=== PATIENT | female | born 1985 | race African-American/Black ===

== ENCOUNTER 2016-06-29 06:17 | Emergency (ER) | payer SELFPAY ==
[2016-06-29] MEDS ORDERED: PROMETHAZINE HCL 25 MG TABLET PO ONE (08:11)
[2016-06-29] MEDS ORDERED: BUTALB/ACETAMINOPHEN/CAFFEINE 1 TAB EACH PO ONE (08:11)
--- NOTE | 2016-06-29 08:12 | ER Document Report ---
HPI - HPI Patient complains to provider of: cold symptoms Onset: Yesterday Onset/Duration: Gradual Quality of pain: Achy Pain Level: 5 Context: Patient presents complaining of sore throat, congestion and nonproductive cough that started yesterday. Patient states she had headache with nausea and vomiting. Patient does report multiple sick contacts at work recently. Patient does report some light sensitivity. Patient denies any fever. Associated Symptoms: Body/muscle aches, Nonproductive cough, Headache, Nausea, Vomiting, Rhinnorhea, Sore throat. denies: Chest pain, Earache, Fever Exacerbated by: Denies Relieved by: Denies Similar symptoms previously: Yes Recently seen / treated by doctor: No - ROS ROS below otherwise negative: Yes Systems Reviewed and Negative: Yes All other systems reviewed and negative - CONSTITUTIONAL Constitutional: REPORTS: Chills. DENIES: Fever - EENT EENT: REPORTS: Sore Throat, Nasal Drainage-Clear, Congestion - NEURO Neurology: REPORTS: Headache - CARDIOVASCULAR Cardiovascular: DENIES: Chest pain - RESPIRATORY Respiratory: REPORTS: Coughing. DENIES: Trouble Breathing - GASTROINTESTINAL Gastrointestinal: REPORTS: Nausea, Patient vomiting. DENIES: Abdominal Pain, Diarrhea - REPRODUCTIVE Reproductive: DENIES: : - MUSCULOSKELETAL Musculoskeletal: REPORTS: Extremity pain - Generalized body aches. DENIES: Back Pain, Neck Pain - DERM Skin Color: Normal Skin Problems: None Past Medical History - General Information source: Patient Last Menstrual Period: 06/22/2016 - Social History Smoking Status: Never Smoker Frequency of alcohol use: Occasional Drug Abuse: None Occupation: food production supervisor Lives with: Family Family History: None Pulmonary Medical History: Reports: Hx Asthma Neurological Medical History: Reports: Hx Migraine Surgical Hx: Negative - Immunizations Immunizations up to date: Yes Hx Diphtheria, Pertussis, Tetanus Vaccination: Yes Hx Pneumococcal Vaccination: 09/06/11 Vertical Provider Document - CONSTITUTIONAL Agree With Documented VS: Yes Exam Limitations: No Limitations General Appearance: WD/WN, No Apparent Distress - INFECTION CONTROL TRAVEL OUTSIDE OF THE [place] IN LAST 30 DAYS: No - HEENT HEENT: Atraumatic, Normocephalic, Pharyngeal Tenderness, Pharyngeal Erythema. negative: Pharyngeal Exudate - NECK Neck: Lymphadenopathy-Left, Lymphadenopathy-Right - RESPIRATORY Respiratory: Breath Sounds Normal, No Respiratory Distress, Chest Non-Tender. negative: Rales, Rhonchi, Wheezing O2 Sat by Pulse Oximetry: 98 - CARDIOVASCULAR Cardiovascular: Regular Rate, Regular Rhythm, No Murmur - GI/ABDOMEN Gastrointestinal: Abdomen Soft, Abdomen Non-Tender, No Organomegaly - BACK Back: Normal Inspection. negative: CVA Tenderness-Right, CVA Tenderness-Left - MUSCULOSKELETAL/EXTREMETIES Musculoskeletal/Extremeties: MAEW, FROM - NEURO Level of Consciousness: Awake, Alert, Appropriate - DERM Integumentary: Warm, Dry, No Rash Course - Re-evaluation Re-evalutation: 06/29/16 09:22 Patient reports feeling better. Patient states headache pain has improved as well as nausea. Patient has been tolerating oral fluids without emesis. Discussed worsening signs or symptoms that patient should return immediately for. Patient verbalized understanding and agrees with plan of care. - Vital Signs Vital signs: Temp Pulse Resp BP Pulse Ox 98.5 F 96 16 115/56 L 98 06/29/16 06:22 06/29/16 06:22 06/29/16 06:22 06/29/16 06:22 06/29/16 06:22 - Laboratory Laboratory results interpreted by me: 06/29/16 09:22 Labs- Entire Visit 06/29/16 06/29/16 08:20 08:20 Influenza A (Rapid) NEGATIVE Influenza B (Rapid) NEGATIVE Group A Strep Rapid NEGATIVE 06/29/16 14:10 Discharge - Discharge Clinical Impression: Sore throat Upper respiratory infection Qualifiers: URI type: unspecified URI Qualified Code(s): J06.9 - Acute upper respiratory infection, unspecified Headache Qualifiers: Headache type: unspecified Headache chronicity pattern: unspecified pattern Intractability: not intractable Qualified Code(s): R51 - Headache Condition: Stable Disposition: HOME, SELF-CARE Instructions: Upper Respiratory Illness ([facility]), Sore Throat ([facility]), Acetaminophen , Headache ([facility]), Nausea or Vomiting, Nonspecific ([facility]) Additional Instructions: Return immediately for any new or worsening symptoms Followup with your primary care provider, call tomorrow to make a followup appointment Prescriptions: Butalb/Acetaminophen/Caffeine [Fioricet (50-325-40 mg) Tablet] 1 - 2 tab PO Q4H #12 each Promethazine HCl [Phenergan 25 mg Tablet] 25 mg PO Q6H PRN #10 tablet PRN Reason: Forms: Return to Work Referrals: [facility] [Provider Group] - Follow up as needed [facility] [Provider Group] - Follow up tomorrow
[2016-06-29 09:31] VITALS: BP 108/56
== END 2016-06-29 09:31 | disposition home or self-care (01) ==
LOC: ER 06:17
DX: J06.9 Acute upper respiratory infection, unspecified (principal); J02.9 Acute pharyngitis, unspecified; R51 Headache; R11.2 Nausea with vomiting, unspecified; M79.1 Myalgia
CPT/HCPCS: 99283; 87070; 87880; 87804; J3490

== ENCOUNTER 2016-08-08 23:34 | Emergency (ER) | payer SELFPAY ==
[2016-08-09] MEDS ORDERED: IPRATROPIUM/ALBUTEROL 0.5-2.5 MG/3 ML AMPUL NEB ONE (03:07)
--- NOTE | 2016-08-09 03:21 | ER Document Report ---
ED Respiratory Problem - General Chief Complaint: Cough Stated Complaint: BREATHING DIFFICULTY Time seen by provider: 03:19 Mode of Arrival: Ambulatory Information source: Patient TRAVEL OUTSIDE OF THE [place] IN LAST 30 DAYS: No - HPI Patient complains to provider of: Cough, Short of breath Onset: Other - Months Duration: Worse/persistent Quality of pain: Achy Severity: Mild Short of Breath: Mild Chest pain/discomfort: Tightness Cough: Nonproductive Associated symptoms: Chest pain/discomfort, Congestion, Cough, Short of breath Notes: Patient is a 31-year-old female who presents to the emergency room complaining of chest tightness with shortness of breath and nonproductive cough, symptoms have been going on for the past few months, but worsened over the past few, she reports that she stopped smoking marijuana approximately 2 weeks ago when her cough worsened, she denies any fevers, no injuries, she does not smoke cigarettes - Related Data Allergies/Adverse Reactions: No Known Allergies Allergy (Verified 12/29/15 21:26) Past Medical History - General Information source: Patient - Social History Smoking Status: Unknown if Ever Smoked Drug Abuse: Marijuana Family History: None Patient has suicidal ideation: No Patient has homicidal ideation: No Pulmonary Medical History: Reports: Hx Asthma Neurological Medical History: Reports: Hx Migraine Renal/ Medical History: Denies: Hx Peritoneal Dialysis - Immunizations Immunizations up to date: Yes Hx Diphtheria, Pertussis, Tetanus Vaccination: Yes Hx Pneumococcal Vaccination: 09/06/11 Review of Systems - Review of Systems Constitutional: No symptoms reported EENT: No symptoms reported Cardiovascular: See HPI Respiratory: See HPI Gastrointestinal: No symptoms reported Genitourinary: No symptoms reported Female Genitourinary: No symptoms reported Musculoskeletal: No symptoms reported Skin: No symptoms reported Hematologic/Lymphatic: No symptoms reported Neurological/Psychological: No symptoms reported -: Yes All other systems reviewed and negative Physical Exam - Vital signs Vitals: Temp Pulse Resp BP Pulse Ox 97.5 F 81 20 140/97 H 100 08/08/16 23:41 08/08/16 23:41 08/08/16 23:41 08/08/16 23:41 08/08/16 23:41 Interpretation: Normal - General General appearance: Appears well, Alert - HEENT Head: Normocephalic, Atraumatic Eyes: Normal Pupils: PERRL - Respiratory Respiratory status: No respiratory distress Chest status: Nontender Breath sounds: Nonproductive cough, Wheezing Chest palpation: Normal - Cardiovascular Rhythm: Regular Heart sounds: Normal auscultation Murmur: No - Abdominal Inspection: Normal Distension: No distension Bowel sounds: Normal Tenderness: Nontender Organomegaly: No organomegaly - Back Back: Normal, Nontender - Extremities General upper extremity: Normal inspection, Nontender, Normal color, Normal ROM , Normal temperature General lower extremity: Normal inspection, Nontender, Normal color, Normal ROM , Normal temperature, Normal weight bearing. No: Janell's sign - Neurological Neuro grossly intact: Yes Cognition: Normal Orientation: AAOx4 Arik Coma Scale Eye Opening: Spontaneous Arik Coma Scale Verbal: Oriented Arik Coma Scale Motor: Obeys Commands Arik Coma Scale Total: 15 Speech: Normal Motor strength normal: LUE, RUE, LLE, RLE Sensory: Normal - Psychological Associated symptoms: Normal affect, Normal mood - Skin Skin Temperature: Warm Skin Moisture: Dry Skin Color: Normal Course - Re-evaluation Re-evalutation: 08/09/16 04:00 Patient reports feeling much better after DuoNeb breathing treatment, imaging shows no evidence of abnormality, this finding was discussed with patient, she was advised to discontinue smoking marijuana, she will be provided with an albuterol inhaler as well as a prescription for steroids, advised to follow-up with her primary care provider or return if symptoms worsen, patient acknowledges understanding and agreement with this plan - Vital Signs Vital signs: Temp Pulse Resp BP Pulse Ox 97.5 F 77 16 117/72 98 08/09/16 02:55 08/09/16 02:55 08/09/16 02:55 08/09/16 02:55 08/09/16 02:55 - Diagnostic Test Radiology reviewed: Image reviewed, Reports reviewed - EKG Interpretation by Md EKG shows normal: Sinus rhythm Rate: Normal Rhythm: NSR Discharge - Discharge Clinical Impression: Viral upper respiratory illness Reactive airway disease Qualifiers: Asthma severity: mild persistent Asthma complication type: uncomplicated Qualified Code(s): J45.30 - Mild persistent asthma, uncomplicated Condition: Stable Disposition: HOME, SELF-CARE Instructions: Upper Respiratory Illness ([facility]), Reactive Airway Disease ([facility]) Additional Instructions: Follow up with your primary care provider in one to 2 days. Return to the emergency room immediately if symptoms worsen or any additional concerns. Prescriptions: Prednisone 40 mg PO DAILY #8 tablet Forms: Return to Work
[2016-08-09] MEDS ORDERED: IBUPROFEN 600 MG TABLET PO ONE (03:33)
[2016-08-09] MEDS ORDERED: PREDNISONE 20 MG TABLET PO ONE (04:00)
[2016-08-09 04:15] VITALS: BP 113/69
[2016-08-09] MEDS ORDERED: ALBUTEROL SULFATE HFA (90 MCG/PUFF) 8 GM MDI (1 MDI/ER DISP) IH SCH (06:00)
--- NOTE | 2016-08-09 07:49 | EKG REPORT ---
SEVERITY:- NORMAL ECG - SINUS RHYTHM : Confirmed by: Gonzalo Ken 09-Aug-2016 07:48:19
== END 2016-08-09 04:16 | disposition home or self-care (01) ==
LOC: ER 23:34
DX: J06.9 Acute upper respiratory infection, unspecified (principal); J45.30 Mild persistent asthma, uncomplicated; R07.9 Chest pain, unspecified; R05 Cough; R06.02 Shortness of breath
CPT/HCPCS: 93005; 94640; 99283; 71020; 93010; J7512; J3490; J7620

== ENCOUNTER 2016-08-19 23:03 | Emergency (ER) | payer SELFPAY ==
[2016-08-20] MEDS ORDERED: ONDANSETRON 4 MG TAB.RAPDIS PO ONE (00:36)
[2016-08-20] MEDS ORDERED: IBUPROFEN 600 MG TABLET PO ONE (00:36)
--- NOTE | 2016-08-20 00:40 | ER Document Report ---
ED General - General Chief Complaint: Headache Stated Complaint: HEADACHE,BLURRED VISION Notes: This is a 31-year-old female with a prior history of asthma who presents for evaluation of feeling dehydrated. She states that she drank "a lot" of alcohol yesterday. Today she presents with headache and blurred vision. No vomiting. In fact she has deep well today and states that she has had [place] food and seafood with no difficulty. Normal bowel movement earlier today. She denies any dysuria or urinary frequency. She has a history of migraines and she states that normally she will take ibuprofen for her headaches but she ran out and did not have any to take tonight. She denies any fevers or chills. TRAVEL OUTSIDE OF THE [place] IN LAST 30 DAYS: No - Related Data Allergies/Adverse Reactions: No Known Allergies Allergy (Verified 08/19/16 23:09) Past Medical History - General Information source: Patient - Social History Smoking Status: Never Smoker Frequency of alcohol use: Occasional Drug Abuse: Marijuana Lives with: Family Family History: None, Reviewed & Not Pertinent Pulmonary Medical History: Reports: Hx Asthma Neurological Medical History: Reports: Hx Migraine Renal/ Medical History: Denies: Hx Peritoneal Dialysis - Immunizations Immunizations up to date: Yes Hx Diphtheria, Pertussis, Tetanus Vaccination: Yes Hx Pneumococcal Vaccination: 09/06/11 Review of Systems - Review of Systems Notes: REVIEW OF SYSTEMS: CONSTITUTIONAL : Denies fever, chills, or sweats. Denies recent illness. EENT: Denies eye, ear, throat, or mouth pain or symptoms. Denies nasal or sinus congestion. CARDIOVASCULAR: Denies chest pain. RESPIRATORY: Denies cough, cold, or chest congestion. Denies shortness of breath, difficulty breathing, or wheezing. GASTROINTESTINAL: Denies abdominal pain. Denies nausea, vomiting, or diarrhea. GENITOURINARY: Denies difficulty urinating, painful urination, burning, frequency, or blood in urine. MUSCULOSKELETAL: Denies neck or back pain or joint pain or swelling. SKIN: Denies rash or skin lesions. HEMATOLOGIC : Denies easy bruising or bleeding. LYMPHATIC: Denies swollen, enlarged glands. NEUROLOGICAL: Denies altered mental status or loss of consciousness. Headache as per history of present illness PSYCHIATRIC: Denies anxiety or stress or depression. ALL OTHER SYSTEMS REVIEWED AND NEGATIVE. Physical Exam - Vital signs Vitals: Temp Pulse Resp BP Pulse Ox 98.0 F 102 H 17 134/82 H 99 08/19/16 23:09 08/19/16 23:09 08/19/16 23:09 08/19/16 23:09 08/19/16 23:09 - Notes Notes: PHYSICAL EXAMINATION: GENERAL: Well-appearing, well-nourished and in no acute distress. Pleasant and conversant HEAD: Atraumatic, normocephalic. EYES: Pupils equal round and reactive to light, extraocular movements intact, sclera anicteric, conjunctiva are normal. ENT: nares patent, oropharynx clear without exudates. Moist mucous membranes. NECK: Normal range of motion, supple without lymphadenopathy LUNGS: Breath sounds clear to auscultation bilaterally and equal. No wheezes rales or rhonchi. HEART: Regular rate and rhythm without murmurs ABDOMEN: Soft, nontender, normoactive bowel sounds. No guarding, no rebound. No masses appreciated. EXTREMITIES: Normal range of motion NEUROLOGICAL: Cranial nerves grossly intact. Normal speech. Motor strength +5/ 5 bilateral upper and lower extremities. Sensation intact. PSYCH: Normal mood, normal affect. SKIN: Warm, Dry, normal turgor, no rashes or lesions noted. Course - Re-evaluation Re-evalutation: 08/20/16 01:52 Patient has remained hemodynamically stable in the emergency department. She is feeling somewhat better after the ibuprofen. She is able to tolerate fluids without difficulty. Her labs are reviewed. She does have a mild leukocytosis. Her chemistries are reassuring. Her urinalysis is within normal limits. At this point she is neurologically intact with a very reassuring exam. I do not suspect meningitis or TUBE BENDER HAND infection. She will be discharged with NSAIDs and nausea medications and instructed to follow up with her primary care physician. We did discuss strict return precautions and she and her family are comfortable with this plan. - Vital Signs Vital signs: Temp Pulse Resp BP Pulse Ox 98.3 F 96 16 122/66 99 08/20/16 02:24 08/20/16 02:24 08/20/16 02:24 08/20/16 02:24 08/20/16 02:24 - Laboratory Result Diagrams: 08/20/16 01:10 08/20/16 01:10 Laboratory results interpreted by me: 08/20/16 01:10 WBC 13.6 H RDW 15.2 H Seg Neutrophils % 78.5 H Lymphocytes % 11.1 L Absolute Neutrophils 10.7 H Discharge - Discharge Clinical Impression: Nausea Headache Qualifiers: Headache type: tension-type Headache chronicity pattern: unspecified pattern Intractability: not intractable Qualified Code(s): G44.209 - Tension-type headache, unspecified, not intractable Condition: Stable Disposition: HOME, SELF-CARE Additional Instructions: HEADACHE: The physician does not feel that the headache you are experiencing has a serious underlying cause. Most headaches are due to emotional stress, with resultant muscle tension (tension headache). Occasionally, headaches are secondary to changes in the blood vessels of the scalp (vascular headache and migraine headache). Sometimes, a headache is the first symptom of another developing illness, such as a viral infection. You have no evidence of stroke, bleeding, meningitis, or other serious cause of your headache. The treatment of headaches varies with the severity and cause of the pain. Not all headaches need pain shots. In fact, there is evidence that using narcotics for headaches may make them worse in the long run. The physician will determine the therapy that's in your best interest. If you develop a fever, if the headache is different from any you've previously experienced, or if the headache progressively worsens, then call your physician at once or go to the emergency room. USE OF DIPHENHYDRAMINE: Diphenhydramine (Benadryl) is an antihistamine and has been recommended to help treat your headache and to prevent side effects of other medications used to treat headaches. The medication can be repeated four times daily. Age Elixir (12.5 mg/tsp) 25 mg pill adult 1-2 tabs Antihistamines may cause drowsiness, especially with the first dose. Do not operate machinery or drive while under the effects of the medication. Do not combine the medication with alcohol, or with any other medication without talking to your doctor. ANTINAUSEA MEDICATION: You have been given a medication to suppress nausea and vomiting. This type of medication can be given as a shot, pill, or suppository. It will usually last for many hours. Pills and shots usually last six to eight hours, suppositories last about 12 hours. For the typical illness, only one or two doses of the medication may be necessary. Mild lightheadedness may occur. This type of medicine can cause drowsiness. Do not drive or operate dangerous machinery while under its influence. Do not mix with alcohol. See your doctor at once if you have muscle spasms or tightness, or uncontrollable motions (particularly of the neck, mouth, or jaw). Persistent vomiting or severe lightheadedness should also be evaluated by the physician. FOLLOW-UP CARE: If you have been referred to a physician for follow-up care, call the physician s office for an appointment as you were instructed or within the next two days. If you experience worsening or a significant change in your symptoms, notify the physician immediately or return to the Emergency Department at any time for re-evaluation. Rest at home and drink plenty of fluids. You should follow up with PCP when able. Return to the ER for increased pain, fever >101, or any worsening symptoms or concerns. Prescriptions: Diphenhydramine HCl [Benadryl] 25 mg PO Q6H PRN #15 capsule PRN Reason: headache Ibuprofen 600 mg PO Q8H PRN #30 tablet PRN Reason: For Pain Promethazine HCl [Phenergan 25 mg Tablet] 1 tab PO Q6H PRN #12 tablet PRN Reason: Forms: Return to Work
[2016-08-20 01:25] LABS: ABSOLUTE BASOPHILS # (AUTO) 0.1 10^3/uL (0.0-0.2); ABSOLUTE EOSINOPHILS # (AUTO) 0.3 10^3/uL (0.0-0.6); ABSOLUTE LYMPHOCYTES (AUTO) 1.5 10^3/uL (0.5-4.7); ABSOLUTE NEUT (AUTO) 10.7 10^3/uL (1.7-8.2); BASOPHILS % (AUTO) 0.8 % (0-2); EOSINOPHILS % (AUTO) 2.4 % (0-6); HEMATOCRIT 40.6 % (36.0-47.0); HEMOGLOBIN 13.1 g/dL (12.0-15.5); HGB HCT DIFFERENCE -1.3; LYMPHOCYTES % (AUTO) 11.1 % (13-45); MEAN CORPUSCULAR HEMOGLOBIN 29.2 pg (27.0-33.4); MEAN CORPUSCULAR HGB CONC 32.4 g/dL (32.0-36.0); MEAN CORPUSCULAR VOLUME 90 fl (80-97); MONOCYTES % (AUTO) 7.2 % (3-13); RED BLOOD COUNT 4.51 10^6/uL (3.72-5.28); RED CELL DISTRIBUTION WIDTH 15.2 % (11.5-14.0); SEGMENTED NEUTROPHILS % (AUTO) 78.5 % (42-78); WHITE BLOOD COUNT 13.6 10^3/uL (4.0-10.5)
[2016-08-20 01:32] LABS: APPEARANCE,URINE CLEAR; BILIRUBIN,URINE NEGATIVE (NEGATIVE); GLUCOSE, URINE NEGATIVE (NEGATIVE); KETONES,URINE NEGATIVE (NEGATIVE); LEUKOCYTE ESTERASE,URINE NEGATIVE (NEGATIVE); NITRITE,URINE NEGATIVE (NEGATIVE); PROTEIN,URINE NEGATIVE (NEGATIVE); URINE SPECIFIC GRAVITY 1.002; UROBILINOGEN,URINE NEGATIVE mg/dL (<2.0)
[2016-08-20 01:45] LABS: ALANINE AMINOTRANSFERASE 19 U/L (9-52); ALBUMIN 4.1 g/dL (3.5-5.0); ALKALINE PHOSPHATASE 64 U/L (38-126); ANION GAP 9 (5-19); ASPARTATE AMINO TRANSFERASE 18 U/L (14-36); BILIRUBIN,DIRECT 0.4 mg/dL (0.0-0.4); BILIRUBIN,TOTAL 0.6 mg/dL (0.2-1.3); BLOOD UREA NITROGEN 10 mg/dL (7-20); CALCIUM 9.9 mg/dL (8.4-10.2); CARBON DIOXIDE 28 mmol/L (22-30); CHLORIDE 102 mmol/L (98-107); GLUCOSE 102 mg/dL (75-110); POTASSIUM 4.3 mmol/L (3.6-5.0); SODIUM 138.9 mmol/L (137-145)
[2016-08-20 01:47] LABS: ALCOHOL < 10 mg/dL (NONE DETECTED)
[2016-08-20 07:50] VITALS: BP 122/66
== END 2016-08-20 02:24 | disposition home or self-care (01) ==
LOC: ER 23:03
DX: G44.209 Tension-type headache, unspecified, not intractable (principal); H53.8 Other visual disturbances; R11.0 Nausea; J45.909 Unspecified asthma, uncomplicated; Z86.69 Personal history of other diseases of the nervous system and sense organs; D72.829 Elevated white blood cell count, unspecified
CPT/HCPCS: 99284; 36415; 80307; 85025; 81025; 80053; 81001; S0119

== ENCOUNTER 2016-08-31 20:56 | Emergency (ER) | payer SELFPAY ==
[2016-08-31 21:03] VITALS: BP 115/74
--- NOTE | 2016-08-31 22:36 | ER Document Report ---
ED General - General Chief Complaint: STD Exposure Stated Complaint: STD CHECK Time Seen by Provider: 08/31/16 22:35 Mode of Arrival: Ambulatory Information source: Patient TRAVEL OUTSIDE OF THE [place] IN LAST 30 DAYS: No - HPI Notes: Patient is a 31-year-old black female history of multiple previous evaluations for possible STD comes in with report that she had unprotected sexual intercourse for the next boyfriend who informed her 2 days later that she was exposed to an STD through him. He did not specify which STD. Patient now reports 2 day history of mild vaginal burning and itching with a very slight discharge. - Related Data Allergies/Adverse Reactions: No Known Allergies Allergy (Verified 08/19/16 23:09) Past Medical History - General Information source: Patient - Social History Smoking Status: Current Every Day Smoker Frequency of alcohol use: None Drug Abuse: None Lives with: Family Family History: None, Reviewed & Not Pertinent Patient has suicidal ideation: No Patient has homicidal ideation: No Pulmonary Medical History: Reports: Hx Asthma Neurological Medical History: Reports: Hx Migraine Renal/ Medical History: Denies: Hx Peritoneal Dialysis - Immunizations Immunizations up to date: Yes Hx Diphtheria, Pertussis, Tetanus Vaccination: Yes Hx Pneumococcal Vaccination: 09/06/11 Review of Systems - Review of Systems Notes: REVIEW OF SYSTEMS: CONSTITUTIONAL : Denies fever, chills, or sweats. Denies recent illness. EENT: Denies eye, ear, throat, or mouth pain or symptoms. Denies nasal or sinus congestion or discharge. Denies throat, tongue, or mouth swelling or difficulty swallowing. CARDIOVASCULAR: Denies chest pain. Denies palpitations or racing or irregular heart beat. Denies ankle edema. RESPIRATORY: Denies cough, cold, or chest congestion. Denies shortness of breath, difficulty breathing, or wheezing. GASTROINTESTINAL: Denies abdominal pain or distention. Denies nausea, vomiting , or diarrhea. Denies blood in vomitus, stools, or per rectum. Denies black, tarry stools. Denies constipation. GENITOURINARY: Denies difficulty urinating, painful urination, burning, frequency, blood in urine, or discharge. FEMALE GENITOURINARY: Denies vaginal bleeding, heavy or abnormal periods, irregular periods. Reports vaginal discharge with mild odor. MUSCULOSKELETAL: Denies back or neck pain or stiffness. Denies joint pain or swelling. SKIN: Denies rash, lesions or sores. HEMATOLOGIC : Denies easy bruising or bleeding. LYMPHATIC: Denies swollen, enlarged glands. NEUROLOGICAL: Denies confusion or altered mental status. Denies passing out or loss of consciousness. Denies dizziness or lightheadedness. Denies headache. Denies weakness or paralysis or loss of use of either side. Denies problems with gait or speech. Denies sensory loss, numbness, or tingling. Denies seizures. PSYCHIATRIC: Denies anxiety or stress. Denies depression, suicidal ideation, or homicidal ideation. ALL OTHER SYSTEMS REVIEWED AND NEGATIVE. Dictation was performed using [employer] voice recognition software Physical Exam - Vital signs Vitals: Temp Pulse Resp BP Pulse Ox 97.9 F 87 16 115/74 97 08/31/16 21:00 08/31/16 21:00 08/31/16 21:00 08/31/16 21:00 08/31/16 21:00 - Notes Notes: PHYSICAL EXAMINATION: GENERAL: Well-appearing, well-nourished and in no acute distress. HEAD: Atraumatic, normocephalic. EYES: Pupils equal round and reactive to light, extraocular movements intact, conjunctiva are normal. ENT: Nares patent, oropharynx clear without exudates. Moist mucous membranes. NECK: Normal range of motion, supple without lymphadenopathy LUNGS: Breath sounds clear to auscultation bilaterally and equal. No wheezes rales or rhonchi. HEART: Regular rate and rhythm without murmurs ABDOMEN: Soft, nontender, nondistended abdomen. No guarding, no rebound. No masses appreciated. Female : deferred Musculoskeletal: Normal range of motion, no pitting or edema. No cyanosis. NEUROLOGICAL: Cranial nerves grossly intact. Normal speech, normal gait. Normal sensory, motor exams PSYCH: Normal mood, normal affect. SKIN: Warm, Dry, normal turgor, no rashes or lesions noted. Course - Re-evaluation Re-evalutation: 08/31/16 23:05 Patient given Rocephin IM and Zithromax by mouth. Specimen sent for gonorrhea and Chlamydia study which was negative. Urinalysis showed some evidence for urinary tract infection. A urine culture was taken. Patient was given Bactrim by mouth. 08/31/16 23:43 - Vital Signs Vital signs: Temp Pulse Resp BP Pulse Ox 97.9 F 87 16 115/74 97 08/31/16 21:00 08/31/16 21:00 08/31/16 21:00 08/31/16 21:00 08/31/16 21:00 - Laboratory Laboratory results interpreted by me: 08/31/16 22:47 Urine Ketones 20 H Ur Leukocyte Esterase TRACE H Urine Ascorbic Acid 40 H Discharge - Discharge Clinical Impression: Urinary tract infection Qualifiers: Urinary tract infection type: site unspecified Hematuria presence: without hematuria Qualified Code(s): N39.0 - Urinary tract infection, site not specified Condition: Stable Disposition: HOME, SELF-CARE Instructions: Trimethoprim-Sulfa ([facility]), Urinary Tract Infection ([facility]) Additional Instructions: Drink plenty fluids. Return to the ED in case of fever or vomiting. Prescriptions: Sulfamethoxazole/Trimethoprim [Bactrim Ds Tablet] 1 each PO BID #14 tablet
[2016-08-31] MEDS ORDERED: CEFTRIAXONE INJ 500 MG VIAL IM ONE (22:43)
[2016-08-31] MEDS ORDERED: AZITHROMYCIN 250 MG TABLET PO ONE (22:43)
[2016-08-31 23:12] LABS: CHLAM PCR NOT DETECTED (NOT DETECT)
[2016-08-31 23:17] LABS: APPEARANCE,URINE SLIGHTLY-CLOUDY; BILIRUBIN,URINE NEGATIVE (NEGATIVE); GLUCOSE, URINE NEGATIVE (NEGATIVE); KETONES,URINE 20 mg/dL (NEGATIVE); LEUKOCYTE ESTERASE,URINE TRACE (NEGATIVE); NITRITE,URINE NEGATIVE (NEGATIVE); PROTEIN,URINE NEGATIVE (NEGATIVE); UROBILINOGEN,URINE NEGATIVE mg/dL (<2.0)
== END 2016-09-01 00:05 | disposition home or self-care (01) ==
LOC: ER 20:56
DX: N39.0 Urinary tract infection, site not specified (principal); Z20.2 Contact with and (suspected) exposure to infections with a predominantly sexual mode of transmission; L29.9 Pruritus, unspecified; N89.8 Other specified noninflammatory disorders of vagina; F17.200 Nicotine dependence, unspecified, uncomplicated; J45.909 Unspecified asthma, uncomplicated
CPT/HCPCS: 99283; 96372; 87086; 81025; 81001; 87491; 87591; J0696

== ENCOUNTER 2017-01-21 16:57 | Emergency (ER) | payer SELFPAY ==
[2017-01-21 17:02] VITALS: BP 121/78
[2017-01-21] MEDS ORDERED: KETOROLAC TROMETHAMINE 60 MG/2 ML SDV IM ONE (17:29)
[2017-01-21] MEDS ORDERED: PROCHLORPERAZINE EDISYLATE INJ 10 MG/2 ML VIAL IM ONE (17:29)
[2017-01-21] MEDS ORDERED: DIPHENHYDRAMINE HCL 50 MG/ML VIAL IM ONE (17:29)
--- NOTE | 2017-01-21 17:30 | ER Document Report ---
ED General - General Mode of Arrival: Ambulatory Information source: Patient TRAVEL OUTSIDE OF THE [place] IN LAST 30 DAYS: No - General Chief Complaint: Other Stated Complaint: NECK PAIN,HEADACHE,LUMP ON CHEST Time Seen by Provider: 01/21/17 17:19 Notes: Patient is a 31 year old female presenting to the emergency department for chest pain and migraine. Patient states she has a knot on her chest Patient states that she was seen recently and told she has coscocondritious. Patient states she has been taking Ibuprofen without relief to her chest pain. Patient states she also has a migraine headache. Patient states she has a history of migraines and this one is the same as her prior migraines. Patient states she used to take medication for her migraines but she has not been back to [facility] for follow up. Patient states that she has taken Tylenol for her migraine with no relief. Patient states that she used to use marijuana but she quit using this drug. (GIANA HURLEY) - Related Data Allergies/Adverse Reactions: No Known Allergies Allergy (Verified 08/19/16 23:09) Past Medical History - Social History Smoking Status: Former Smoker Chew tobacco use (# tins/day): No Frequency of alcohol use: Occasional Drug Abuse: None Family History: None, Reviewed & Not Pertinent Pulmonary Medical History: Reports: Hx Asthma Neurological Medical History: Reports: Hx Migraine Renal/ Medical History: Denies: Hx Peritoneal Dialysis Surgical Hx: Negative - Immunizations Immunizations up to date: Yes Hx Diphtheria, Pertussis, Tetanus Vaccination: No Hx Pneumococcal Vaccination: 09/06/11 Physical Exam - Vital signs Vitals: Temp Pulse Resp BP Pulse Ox 98.0 F 95 16 121/78 99 01/21/17 17:02 01/21/17 17:02 01/21/17 17:02 01/21/17 17:02 01/21/17 17:02 - Notes Notes: GENERAL: Alert, interacts well. No acute distress. HEAD: Normocephalic, atraumatic. EYES: Pupils equal, round, and reactive to light. Extraocular movements intact. ENT: Oral mucosa moist, tongue midline. NECK: Full range of motion. Supple. Trachea midline. LUNGS: Clear to auscultation bilaterally, no wheezes, rales, or rhonchi. No respiratory distress. Left 3rd rib is slightly more prominant than the right. HEART: Mild tachycardia. Regular rhythm. No murmurs, gallops, or rubs. ABDOMEN: Soft, non-tender. Non-distended. Bowel sounds present in all 4 quadrants. EXTREMITIES: Moves all 4 extremities spontaneously. No edema. No cyanosis. NEUROLOGICAL: Alert and oriented x3. Normal speech. Cranial nerves II through XII grossly intact. PSYCH: Normal affect, normal mood. SKIN: Warm, dry, normal turgor. No rashes or lesions noted. (GIANA HURLEY) Course - Re-evaluation Re-evalutation: 01/21/17 17:30 I am concerned by the somewhat enlarged and more prominent area of bone at the origin of the third rib on the left, discussed with patient that as this has been painful and enlarging for several months if not a year that it should be biopsied to make sure that this is not a tumor or a form of cancer. I agree that at this point if it were costochondritis it should have cleared up at least temporarily. For the acute pain of her migraine which is consistent with all of her other prior migraines patient will be treated with Toradol, Compazine and Benadryl. Patient will follow up with [facility] as an outpatient as they used to have her on an outpatient medication regimen that worked well. Patient will be discharged home. 01/21/17 18:10 (TRACY ARIAS) - Vital Signs Vital signs: Temp Pulse Resp BP Pulse Ox 98.0 F 95 16 121/78 99 01/21/17 17:02 01/21/17 17:02 01/21/17 17:02 01/21/17 17:02 01/21/17 17:02 Discharge - Discharge Clinical Impression: Rib pain on left side Migraine headache Qualifiers: Migraine type: without aura Status migrainosus presence: without status migrainosus Intractability: not intractable Qualified Code(s): G43.009 - Migraine without aura, not intractable, without status migrainosus Condition: Stable Disposition: HOME, SELF-CARE Additional Instructions: Today we treated her headache with Toradol, Compazine and Benadryl. This will take care of your migraine acutely but will not prevent new ones. Please follow -up with [facility] to have them restart the medication they were using before that prevented your migraines. For the painful and enlarging area on your left rib #3 I would really like you to follow-up with a surgeon as an outpatient to have a biopsy performed of this area. Since this is been going on for over a year without relief and he has been getting larger I think it is very important that they make sure this is not cancer or another form of tumor. This will need to be set up through your primary care physician. You may also directly contact [facility] however they may require a referral. Forms: Return to Work Referrals: [facility] [Provider Group] - Follow up as needed [facility] [Provider Group] - Follow up as needed Scribe Attestation: 01/21/17 18:10 I personally performed the services described in the documentation, reviewed and edited the documentation which was dictated to the scribe in my presence, and it accurately records my words and actions. (TRACY ARIAS) Scribe Documentation - Scribe Written by Jen:: Jen Narayan 01/21/17 17:36 acting as scribe for :: Vinod
== END 2017-01-21 18:05 | disposition home or self-care (01) ==
LOC: ER 16:57
DX: G43.009 Migraine without aura, not intractable, without status migrainosus (principal); R07.81 Pleurodynia; M54.2 Cervicalgia; R22.2 Localized swelling, mass and lump, trunk
CPT/HCPCS: 99283; 96372; J1200; J1885; J0780

== ENCOUNTER 2017-02-26 20:37 | Emergency (ER) | payer SELFPAY ==
--- NOTE | 2017-02-26 22:40 | ER Document Report ---
ED GI/ - General Chief Complaint: Vaginal Itching Stated Complaint: VAGINAL ITCHING Time Seen by Provider: 02/26/17 22:35 Notes: The patient is a 31-year-old female presents with several weeks of vaginal itching and dysuria that started after she had unprotected sex 2 weeks ago. Patient also said she had a positive test at home and her LMP was ~4 weeks ago. She denies nausea, vomiting, abdominal pain, fevers, diarrhea, constipation, flank pain or headache. TRAVEL OUTSIDE OF THE [place] IN LAST 30 DAYS: No - Related Data Allergies/Adverse Reactions: No Known Allergies Allergy (Verified 08/19/16 23:09) Past Medical History - General Information source: Patient - Social History Smoking Status: Unknown if Ever Smoked Family History: None, Reviewed & Not Pertinent Patient has suicidal ideation: No Patient has homicidal ideation: No Pulmonary Medical History: Reports: Hx Asthma Neurological Medical History: Reports: Hx Migraine Renal/ Medical History: Denies: Hx Peritoneal Dialysis - Immunizations Immunizations up to date: Yes Hx Diphtheria, Pertussis, Tetanus Vaccination: No Hx Pneumococcal Vaccination: 09/06/11 Review of Systems - Review of Systems Notes: REVIEW OF SYSTEMS: CONSTITUTIONAL: -fevers, -chills EENT: -eye pain, -difficulty swallowing, -nasal congestion CARDIOVASCULAR:-chest pain, -syncope. RESPIRATORY: -cough, -SOB GASTROINTESTINAL: -abdominal pain, - nausea, -vomiting, -diarrhea GENITOURINARY: +dysuria, -hematuria, +vaginal itching MUSCULOSKELETAL: -back pain, -neck pain SKIN: -rash or skin lesions. HEMATOLOGIC: -easy bruising or bleeding. LYMPHATIC: -swollen, enlarged glands. NEUROLOGICAL: -altered mental status or loss of consciousness, -headache, - neurologic symptoms PSYCHIATRIC: -anxiety, -depression. ALL OTHER SYSTEMS REVIEWED AND NEGATIVE. Physical Exam - Notes Notes: PHYSICAL EXAMINATION: GENERAL: Well-appearing, well-nourished and in no acute distress. HEAD: Atraumatic, normocephalic. EYES: Pupils equal round and reactive to light, extraocular movements intact, sclera anicteric, conjunctiva are normal. ENT: nares patent, oropharynx clear without exudates. Moist mucous membranes. NECK: Normal range of motion, supple without lymphadenopathy LUNGS: Breath sounds clear to auscultation bilaterally and equal. No wheezes rales or rhonchi. HEART: Regular rate and rhythm without murmurs ABDOMEN: Soft, nontender, normoactive bowel sounds. No guarding, no rebound. No masses appreciated. : No CMT. Mild clear vaginal discharge. No lesions. No uterine or adnexal tenderness. EXTREMITIES: Normal range of motion, no pitting or edema. No cyanosis. NEUROLOGICAL: Cranial nerves grossly intact. Normal speech, normal gait. Normal sensory and motor exams. PSYCH: Normal mood, normal affect. SKIN: Warm, Dry, normal turgor, no rashes or lesions noted. Course - Re-evaluation Re-evalutation: Patient would like to be treated for gonorrhea and chlamydia today due to her recent unprotected sexual intercourse. Will also treat her for BV due to her malodorous discharge. She is about 4 weeks by LMP and has an appointment with the health department this week. No evidence of PID or TOA at this time. Instructed her to always use protection and follow-up with the health department. - Laboratory Laboratory results interpreted by me: 02/26/17 23:00 Urine Ketones TRACE H Ur Leukocyte Esterase TRACE H Urine HCG, Qual POSITIVE H Discharge - Discharge Clinical Impression: Concern about STD in female without diagnosis Vaginal discharge during Qualifiers: Trimester: first trimester Qualified Code(s): O26.891 - Other specified related conditions, first trimester; N89.8 - Other specified noninflammatory disorders of vagina; N89.8 - Other specified noninflammatory disorders of vagina Condition: Good Disposition: HOME, SELF-CARE Additional Instructions: You were treated for Chlamydia and Gonorrhea today. Take the full course of Flagyl. Always use protection and follow-up with the Health Center for further testing and treatment. Vaginitis Your exam shows that you have vaginitis, a vaginal infection. The infection can be caused by a many different organisms, including trichomonas or Gardnerella. The usual symptoms are vaginal irritation and discharge. The treatment is usually antibiotics such as Flagyl. Laboratory tests can determine which germ is responsible. Use the medication as prescribed. Because this infection can be transmitted sexually, your sexual partner may need to be checked and treated also. If your physician has not discussed this with you, please check before resuming sexual relations. If a culture shows gonorrhea or chlamydia, the infection must be reported to the health department. Call the doctor if you develop pelvic pain, fever, or problems with urination, or if you don't improve as expected. Prescriptions: Metronidazole [Flagyl 500 mg Tablet] 500 mg PO Q8H #20 tablet Referrals: [facility] [NO LOCAL MD] - Follow up as needed
[2017-02-26 23:30] LABS: AMORPHOUS SEDIMENT,URINE TRACE /HPF; APPEARANCE,URINE SLIGHTLY-CLOUDY; BILIRUBIN,URINE NEGATIVE (NEGATIVE); GLUCOSE, URINE NEGATIVE (NEGATIVE); KETONES,URINE TRACE mg/dL (NEGATIVE); LEUKOCYTE ESTERASE,URINE TRACE (NEGATIVE); NITRITE,URINE NEGATIVE (NEGATIVE); PROTEIN,URINE NEGATIVE (NEGATIVE); URINE SPECIFIC GRAVITY 1.018; UROBILINOGEN,URINE NEGATIVE mg/dL (<2.0)
[2017-02-26] MEDS ORDERED: LIDOCAINE 1% INJ-PF (10 MG/ML) 30 ML SDV INJ ONE (23:33)
[2017-02-26] MEDS ORDERED: METRONIDAZOLE 500 MG TABLET PO ONE (23:33)
[2017-02-26] MEDS ORDERED: CEFTRIAXONE INJ 250 MG VIAL IM ONE (23:33)
[2017-02-26] MEDS ORDERED: AZITHROMYCIN 1 GM SUSP PACKET PO ONE (23:33)
[2017-02-26 23:57] VITALS: BP 117/55
[2017-02-27 01:12] LABS: CHLAM PCR NOT DETECTED (NOT DETECT)
== END 2017-02-26 23:57 | disposition home or self-care (01) ==
LOC: ER 20:37
DX: Z20.2 Contact with and (suspected) exposure to infections with a predominantly sexual mode of transmission (principal); O26.899 Other specified pregnancy related conditions, unspecified trimester; L29.9 Pruritus, unspecified; R30.0 Dysuria; O99.519 Diseases of the respiratory system complicating pregnancy, unspecified trimester; J45.909 Unspecified asthma, uncomplicated; Z3A.00 Weeks of gestation of pregnancy not specified
CPT/HCPCS: 99283; 96372; 87210; 81025; 81001; 87491; 87591; J3490; Q0144; J0696

== ENCOUNTER 2017-03-06 19:21 | Emergency (ER) | payer SELFPAY ==
[2017-03-06 20:01] VITALS: BP 122/74
[2017-03-06] MEDS ORDERED: DEXAMETHASONE 4 MG TABLET PO ONE (20:29)
[2017-03-06] MEDS ORDERED: ALBUTEROL SULFATE HFA (90 MCG/PUFF) 8 GM MDI (1 MDI/ER DISP) IH PRN (20:29)
--- NOTE | 2017-03-06 20:30 | ER Document Report ---
ED General - General Chief Complaint: Chest Pain Stated Complaint: DIFFICULTY BREATHING,CHEST PAIN Time Seen by Provider: 03/06/17 20:21 Notes: Patient is a 31-year-old female with a history of asthma who presents with concerns of mild wheezing and being out of her albuterol inhaler. Patient states she had an albuterol pump but this ran out several weeks ago. Patient states the past several days she has had increased wheezing and was concerned so she came to the emergency department. She states after receiving a treatment in the EMS truck she is no longer has shortness of breath. She also complains of a tender lump on her left central chest that is been present for 8 months and she is currently following with outpatient primary care but denies that this is the primary reason for visit today. Nothing has improved worsen her symptoms in regards to her shortness of breath. She has not seen her primary care doctor regarding her asthma or running out of her albuterol inhalers. TRAVEL OUTSIDE OF THE [place] IN LAST 30 DAYS: No - Related Data Allergies/Adverse Reactions: No Known Allergies Allergy (Verified 08/19/16 23:09) Past Medical History - General Information source: Patient - Social History Smoking Status: Never Smoker Chew tobacco use (# tins/day): No Frequency of alcohol use: None Drug Abuse: None Family History: Reviewed & Not Pertinent Patient has suicidal ideation: No Patient has homicidal ideation: No Pulmonary Medical History: Reports: Hx Asthma Neurological Medical History: Reports: Hx Migraine Renal/ Medical History: Denies: Hx Peritoneal Dialysis - Immunizations Immunizations up to date: Yes Hx Diphtheria, Pertussis, Tetanus Vaccination: No Hx Pneumococcal Vaccination: 09/06/11 Review of Systems - Review of Systems Notes: Constitutional: Negative for fever. HENT: Negative for sore throat. Eyes: Negative for visual changes. Cardiovascular: Negative for chest pain. Respiratory: Positive for shortness of breath. Gastrointestinal: Negative for abdominal pain, vomiting or diarrhea. Genitourinary: Negative for dysuria. Musculoskeletal: Negative for back pain. Skin: Negative for rash. Neurological: Negative for headaches, weakness or numbness. 10 point ROS negative except as marked above and in HPI. Physical Exam - Vital signs Vitals: Resp BP 16 122/74 03/06/17 19:43 03/06/17 19:43 Interpretation: Normal Notes: PHYSICAL EXAMINATION: GENERAL: Well-appearing, well-nourished and in no acute distress. HEAD: Atraumatic, normocephalic. EYES: Pupils equal round and reactive to light, extraocular movements intact, sclera anicteric, conjunctiva are normal. ENT: nares patent, oropharynx clear without exudates. Moist mucous membranes. NECK: Normal range of motion, supple without lymphadenopathy LUNGS: Breath sounds clear to auscultation bilaterally and equal. No wheezes rales or rhonchi. HEART: Regular rate and rhythm without murmurs ABDOMEN: Soft, nontender, normoactive bowel sounds. No guarding, no rebound. No masses appreciated. EXTREMITIES: Normal range of motion, no pitting or edema. No cyanosis. NEUROLOGICAL: No focal neurological deficits. Moves all extremities spontaneously and on command. PSYCH: Normal mood, normal affect. SKIN: Warm, Dry, normal turgor, no rashes or lesions noted. Course - Re-evaluation Re-evalutation: 03/06/17 20:26 Patient presents with complaints of being out of her albuterol inhaler and having some mild wheezing prior to presentation. She was given a nebulizer prior to arrival and no longer has any wheezing, tachypnea or distress on exam. She denies chest pain contrary to initial triage report and actually is complaining about a "knot in her chest wall" that is been there for about 8 months and she is having worked up with her primary care physician. This appears to actually be a cyst versus a possible bony spur from a rib over the left central chest. I do not see an indication for a chest x-ray or laboratories given clinical history and exam. He notes clinically suspect an acute pneumonia, pneumothorax, or aortic dissection given history and exam. EKG is unremarkable. She is without any respiratory symptoms at this time. Will give a dose of dexamethasone, provide a an albuterol inhaler as well as a spacer. At this time will discharge with return precautions and follow-up recommendations. Verbal discharge instructions given a the bedside and opportunity for questions given. Medication warnings reviewed. Patient is in agreement with this plan and has verbalized understanding of return precautions and the need for primary care follow-up in the next 24-72 hours. - Vital Signs Vital signs: Temp Pulse Resp BP Pulse Ox 19 122/74 03/06/17 20:00 03/06/17 19:43 - EKG Interpretation by Me Additional EKG results interpreted by me: 03/06/17 20:28 Normal sinus rhythm. Rate 84. No ST elevations or depressions. QTC is 407. Discharge - Discharge Clinical Impression: Asthma exacerbation Qualifiers: Asthma severity: moderate Asthma persistence: unspecified Qualified Code(s): J45.901 - Unspecified asthma with (acute) exacerbation Condition: Good Disposition: HOME, SELF-CARE Additional Instructions: You were seen for an asthma exacerbation. Your symptoms improved with treatment here in the emergency department. However, it is very important that you return to the emergency department immediately if you began to have worsening difficulty breathing that does not respond to your normal home nebulizers. Please also follow closely with your primary care physician. you should also return to emergency department if you develop fever greater than 101 , persistent cough, persistent vomiting, pass out, or any other symptoms that are concerning to you.
--- NOTE | 2017-03-06 21:18 | EKG REPORT ---
SEVERITY:- NORMAL ECG - SINUS RHYTHM : Confirmed by: Julee Mohr MD 06-Mar-2017 21:17:23
== END 2017-03-06 20:51 | disposition home or self-care (01) ==
LOC: ER 19:21
DX: J45.901 Unspecified asthma with (acute) exacerbation (principal); R07.9 Chest pain, unspecified; R06.02 Shortness of breath
CPT/HCPCS: 93005; 99284; 93010; J3490

== ENCOUNTER → 2017-04-13 | Outpatient (CLI) | payer MEDICAID ==
--- NOTE | 2017-04-13 16:04 | RADIOLOGY REPORT (SQ) ---
EXAM DESCRIPTION: U/S [id number] TRNABD 1GES W/ODOP COMPLETED DATE/TIME: 04/13/2017 1:56 pm REASON FOR STUDY: Z34.81 ENCOUNTER FOR SUPRVSN OF NORMAL , FIRST TRIMESTER Z34.81 ENCOUNTE R FOR SUPRVSN OF NORMAL , FIRST TRIM COMPARISON: None. TECHNIQUE: Transabdominal static and realtime grayscale images acquired of the pelvis. Additional se lected spectral and color Doppler images recorded. All images stored on PACs. bHCG: None available LIMITATIONS: None. FINDINGS: FETUS: Living intrauterine . EGA: 11 weeks 5 days TEJA: 10/28/2017 FHR: 175 beats per minute. SUBCHORIONIC BLEED: Yes SIZE OF BLEED: Moderate size, 4 x 1 cm along the fundal region UTERUS: Uterus is 11.5 x 8.3 x 10.8 cm in size with a 3 cm fundal fibroid. CERVICAL LENGTH: 2.6 cm Closed. RIGHT ADNEXA: Not visualized LEFT ADNEXA: Not visualized. FREE FLUID: None. OTHER: No other significant finding. IMPRESSION: LIVING INTRAUTERINE . EGA 11 weeks 5 days Moderate size fundal subchorionic hemorrhage Uterine fundal fibroid 3 cm in size Trimester of : First - 0 to 13 weeks. TECHNICAL DOCUMENTATION: JOB ID: [id number] [employer]- All Rights Reserved
== END ==
LOC: RAD 12:54
PROVIDERS: ATTEND Nurse Practitioner Women's Health
DX: Z34.81 Encounter for supervision of other normal pregnancy, first trimester (principal)
CPT/HCPCS: 76801

== ENCOUNTER 2017-05-16 10:10 | Emergency (ER) | payer OTHER, MEDICAID ==
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
[2017-05-16 10:43] LABS: ABSOLUTE BASOPHILS # (AUTO) 0.1 10^3/uL (0.0-0.2); ABSOLUTE EOSINOPHILS # (AUTO) 0.6 10^3/uL (0.0-0.6); ABSOLUTE MONOCYTES (AUTO) 0.6 10^3/uL (0.1-1.4); ABSOLUTE NEUT (AUTO) 6.4 10^3/uL (1.7-8.2); BASOPHILS % (AUTO) 0.5 % (0-2); EOSINOPHILS % (AUTO) 6.3 % (0-6); HEMATOCRIT 37.7 % (36.0-47.0); HEMOGLOBIN 12.4 g/dL (12.0-15.5); MEAN CORPUSCULAR HEMOGLOBIN 29.1 pg (27.0-33.4); MEAN CORPUSCULAR HGB CONC 32.8 g/dL (32.0-36.0); MEAN CORPUSCULAR VOLUME 89 fl (80-97); MONOCYTES % (AUTO) 5.7 % (3-13); PLATELET COUNT 303 10^3/uL (150-450); RED BLOOD COUNT 4.24 10^6/uL (3.72-5.28); RED CELL DISTRIBUTION WIDTH 13.9 % (11.5-14.0); SEGMENTED NEUTROPHILS % (AUTO) 66.5 % (42-78); TOTAL CELLS COUNTED % (AUTO) 100 %; WHITE BLOOD COUNT 9.6 10^3/uL (4.0-10.5)
[2017-05-16 10:47] LABS: APPEARANCE,URINE SLIGHTLY-CLOUDY; BILIRUBIN,URINE NEGATIVE (NEGATIVE); COLOR,URINE YELLOW; GLUCOSE, URINE NEGATIVE (NEGATIVE); KETONES,URINE 80 mg/dL (NEGATIVE); LEUKOCYTE ESTERASE,URINE TRACE (NEGATIVE); NITRITE,URINE NEGATIVE (NEGATIVE); PROTEIN,URINE NEGATIVE (NEGATIVE); URINE SPECIFIC GRAVITY 1.023
[2017-05-16 10:58] LABS: ALANINE AMINOTRANSFERASE 19 U/L (9-52); ALKALINE PHOSPHATASE 37 U/L (38-126); ANION GAP 8 (5-19); ASPARTATE AMINO TRANSFERASE 15 U/L (14-36); BILIRUBIN,DIRECT 0.1 mg/dL (0.0-0.4); BILIRUBIN,TOTAL 0.4 mg/dL (0.2-1.3); BLOOD UREA NITROGEN 8 mg/dL (7-20); CALCIUM 9.8 mg/dL (8.4-10.2); CARBON DIOXIDE 26 mmol/L (22-30); CHLORIDE 101 mmol/L (98-107); GLUCOSE 102 mg/dL (75-110); POTASSIUM 3.8 mmol/L (3.6-5.0); SODIUM 134.6 mmol/L (137-145); TOTAL PROTEIN 6.9 g/dL (6.3-8.2)
--- NOTE | 2017-05-16 11:46 | RADIOLOGY REPORT (SQ) ---
EXAM DESCRIPTION: U/S OB 14+ TA/1 GEST W/DOPPLER COMPLETED DATE/TIME: 05/16/2017 11:37 am REASON FOR STUDY: abd pain COMPARISON: None. TECHNIQUE: Static and Dynamic grayscale imaging performed of gravid uterus using transabdominal appr oach. Additional selected color Doppler and spectral images recorded. All stored on PACS. LIMITATIONS: None. FINDINGS: EGA: 16 week 4 day TEJA: 10/27/2017 EFW: 165 grams PERCENTILE: Back calculate FLACO: Largest vertical pocket 3.9 cm. PLACENTA: Posterior without evidence of abruption or heterogeneity. PRESENTATION: Variable. ANATOMY: HEART RATE: 171 beats per minute. FOUR CHAMBER HEART: Visualized. THREE VESSEL CORD: Yes. CORD INSERTION: Visualized. KIDNEYS AND BLADDER: Visualized. Appear normal. STOMACH: Visualized. Appears normal. SPINE: Normal as visualized. BRAIN AND LATERAL VENTRICLES: Visualized. Appear normal. OTHER: No other significant finding. MATERNAL ADNEXA: Maternal ovaries not visualized. CERVICAL LENGTH: 3.1 cm. Closed. OTHER: No other significant finding. IMPRESSION: LIVING INTRAUTERINE . ESTIMATED GESTATIONAL AGE 16 week 4 day. NO VISUALIZED ANOMALIES. Trimester of : Second trimester - 13 weeks 1 day to 27 weeks 6 days. TECHNICAL DOCUMENTATION: JOB ID: [id number] [employer]- All Rights Reserved
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
[2017-05-16 12:45] VITALS: BP 128/76
== END 2017-05-16 12:45 | disposition home or self-care (01) ==
LOC: ER 10:10
DX: O26.892 Other specified pregnancy related conditions, second trimester (principal); R10.9 Unspecified abdominal pain; Z3A.16 16 weeks gestation of pregnancy; V87.7XXA Person injured in collision between other specified motor vehicles (traffic), initial encounter
CPT/HCPCS: 36415; 76805; 80053; 81001; 84702; 85025; 93976; 99284

== ENCOUNTER 2017-08-25 15:03 | Outpatient (CLI) | payer MEDICAID ==
[2017-08-25 15:55] LABS: APPEARANCE,URINE SLIGHTLY-CLOUDY; BILIRUBIN,URINE NEGATIVE (NEGATIVE); COLOR,URINE YELLOW; GLUCOSE, URINE NEGATIVE (NEGATIVE); KETONES,URINE NEGATIVE (NEGATIVE); LEUKOCYTE ESTERASE,URINE SMALL (NEGATIVE); NITRITE,URINE NEGATIVE (NEGATIVE); PROTEIN,URINE NEGATIVE (NEGATIVE); URINE SPECIFIC GRAVITY 1.012; UROBILINOGEN,URINE NEGATIVE mg/dL (<2.0)
[2017-08-25 16:24] LABS: URINE AMPHETAMINES SCREEN NEGATIVE; URINE BARBITURATES SCREEN NEGATIVE; URINE BENZODIAZEPINES SCREEN NEGATIVE; URINE COCAINE SCREEN NEGATIVE; URINE MARIJUANA (THC) SCREEN NEGATIVE; URINE METHADONE SCREEN NEGATIVE; URINE PHENCYCLIDINE SCREEN NEGATIVE
== END 2017-08-25 16:33 | disposition home or self-care (01) ==
LOC: LC 15:03
PROVIDERS: ATTEND Obstetrics & Gynecology
DX: Z34.93 Encounter for supervision of normal pregnancy, unspecified, third trimester (principal); Z3A.31 31 weeks gestation of pregnancy
CPT/HCPCS: 80307; 81001

== ENCOUNTER 2017-10-10 12:55 | Outpatient (CLI) | payer MEDICAID ==
[2017-10-10 13:51] LABS: APPEARANCE,URINE CLOUDY; BILIRUBIN,URINE NEGATIVE (NEGATIVE); GLUCOSE, URINE NEGATIVE (NEGATIVE); KETONES,URINE NEGATIVE (NEGATIVE); LEUKOCYTE ESTERASE,URINE LARGE (NEGATIVE); NITRITE,URINE NEGATIVE (NEGATIVE); PROTEIN,URINE NEGATIVE (NEGATIVE); UROBILINOGEN,URINE NEGATIVE mg/dL (<2.0)
[2017-10-10 13:56] LABS: COLOR,URINE LIGHT YELLOW
[2017-10-10 14:30] LABS: URINE AMPHETAMINES SCREEN NEGATIVE; URINE BARBITURATES SCREEN NEGATIVE; URINE BENZODIAZEPINES SCREEN NEGATIVE; URINE COCAINE SCREEN NEGATIVE; URINE MARIJUANA (THC) SCREEN NEGATIVE; URINE METHADONE SCREEN NEGATIVE; URINE PHENCYCLIDINE SCREEN NEGATIVE
== END 2017-10-10 14:00 | disposition home or self-care (01) ==
LOC: LC 12:55
PROVIDERS: ATTEND Obstetrics & Gynecology
PROC: 4A1HXCZ Monitoring of Products of Conception, Cardiac Rate, External Approach (ICD-10-PCS; principal; 2017-10-10)
DX: O47.1 False labor at or after 37 completed weeks of gestation (principal); Z3A.37 37 weeks gestation of pregnancy
CPT/HCPCS: 59025; 80307; 81005

== ENCOUNTER 2017-10-19 22:34 | Outpatient (CLI) | payer MEDICAID ==
--- NOTE | 2017-10-19 22:37 | Non Stress Test Report ---
Non Stress Test Datetime Report Generated by CPN: 10/19/2017 22:37 DEMOGRAPHIC EGA NST: 37.4 INDICATION Indication for Study: Ordered by Provider VITAL SIGNS Temperature - NST: 98.0 Pulse - NST: 93 RESP - NST: 16 NBPSYS NST: 118 NBPDIA NST: 78 MONITORING Monitor Explained: Monitor Explained; Test Explained; Patient Verbalized Understanding Time on Monitor: 10/10/2017 13:05 Time off Monitor: 10/10/2017 13:55 NST Duration: 50 NST INTERVENTIONS NST Interventions: PO Hydration Physician Notified NST: Newton, CNM BABY A: [id number] BABY A Movement : Present Contraction Frequency : 0 FHR Baseline : 140 Accelerations : 15X15 Decelerations : None Variability : Moderate 6-25bpm NST Review: Meets Criteria for Reactive NST NST Review and Verified By : ARMANI SILVA RN NST Results: Reactive NST REPORT Report Trigger: Send Report
[2017-10-19 23:26] LABS: APPEARANCE,URINE SLIGHTLY-CLOUDY; BILIRUBIN,URINE NEGATIVE (NEGATIVE); COLOR,URINE STRAW; GLUCOSE, URINE NEGATIVE (NEGATIVE); KETONES,URINE NEGATIVE (NEGATIVE); LEUKOCYTE ESTERASE,URINE SMALL (NEGATIVE); NITRITE,URINE NEGATIVE (NEGATIVE); PROTEIN,URINE NEGATIVE (NEGATIVE); URINE SPECIFIC GRAVITY 1.005; UROBILINOGEN,URINE NEGATIVE mg/dL (<2.0)
[2017-10-19 23:40] LABS: URINE AMPHETAMINES SCREEN NEGATIVE; URINE BARBITURATES SCREEN NEGATIVE; URINE BENZODIAZEPINES SCREEN NEGATIVE; URINE COCAINE SCREEN NEGATIVE; URINE MARIJUANA (THC) SCREEN NEGATIVE; URINE METHADONE SCREEN NEGATIVE; URINE PHENCYCLIDINE SCREEN NEGATIVE
[2017-10-20] MEDS ORDERED: RINGERS SOLUTION,LACTATED 1,000 ML IV PRN (00:05)
[2017-10-20] MEDS ORDERED: RINGERS SOLUTION,LACTATED 1,000 ML IV ONE (00:05)
[2017-10-20] MEDS ORDERED: HYDROXYZINE PAMOATE 50 MG CAPSULE PO ONE (01:35)
[2017-10-20] MEDS ORDERED: HYDROXYZINE PAMOATE 50 MG CAPSULE ONE (01:45)
--- NOTE | 2017-10-20 02:20 | Non Stress Test Report ---
Non Stress Test Datetime Report Generated by CPN: 10/20/2017 02:19 DEMOGRAPHIC EGA NST: 38.6 INDICATION Indication for Study: Ordered by Provider URINE RESULTS Urine Protein, NST: Negative Urine Ketones - NST: Negative Urine Glucose - NST: Negative Urine Blood - NST: Negative MONITORING Monitor Explained: Monitor Explained; Test Explained; Patient Verbalized Understanding Time on Monitor: 10/19/2017 22:51 Time off Monitor: 10/19/2017 23:21 NST Duration: 30 NST INTERVENTIONS NST Interventions: PO Hydration; IV Fluids Physician Notified NST: Dr. De La Rosa BABY A Movement : Present Contraction Frequency : 1.5-5 FHR Baseline : 140 Accelerations : 15X15 Decelerations : None Variability : Moderate 6-25bpm NST Review: Meets Criteria for Reactive NST NST Review and Verified By : Lavon Shine RN Results: Reactive NST REPORT Report Trigger: Send Report
== END 2017-10-20 02:01 | disposition home or self-care (01) ==
LOC: LC 22:34
PROVIDERS: ATTEND Student in an Organized Health Care Education/Training Program
PROC: 4A1HXCZ Monitoring of Products of Conception, Cardiac Rate, External Approach (ICD-10-PCS; principal; 2017-10-19)
DX: O47.1 False labor at or after 37 completed weeks of gestation (principal); Z3A.38 38 weeks gestation of pregnancy
CPT/HCPCS: 59025; 94760; 81001; 80307; J3490

== ENCOUNTER 2017-10-22 17:37 | Outpatient (CLI) | payer MEDICAID ==
[2017-10-22] MEDS ORDERED: ACETAMINOPHEN 325 MG TABLET PO ONE (18:26)
[2017-10-22 18:27] LABS: APPEARANCE,URINE SLIGHTLY-CLOUDY; BILIRUBIN,URINE NEGATIVE (NEGATIVE); COLOR,URINE YELLOW; GLUCOSE, URINE NEGATIVE (NEGATIVE); KETONES,URINE NEGATIVE (NEGATIVE); LEUKOCYTE ESTERASE,URINE NEGATIVE (NEGATIVE); NITRITE,URINE NEGATIVE (NEGATIVE); PROTEIN,URINE NEGATIVE (NEGATIVE); URINE SPECIFIC GRAVITY 1.006; UROBILINOGEN,URINE NEGATIVE mg/dL (<2.0)
[2017-10-22] MEDS ORDERED: ACETAMINOPHEN 325 MG TABLET ONE (18:28)
--- NOTE | 2017-10-22 18:38 | Non Stress Test Report ---
Non Stress Test Datetime Report Generated by CPN: 10/22/2017 18:37 DEMOGRAPHIC EGA NST: 39.2 INDICATION Indication for Study: Decreased Movement; Ordered by Provider Indication for Study (NST) Other: Labor Check MONITORING Monitor Explained: Monitor Explained; Test Explained; Patient Verbalized Understanding Time on Monitor: 10/22/2017 18:03 Time off Monitor: 10/22/2017 18:34 NST Duration: 31 NST INTERVENTIONS NST Interventions: PO Hydration; Reposition Patient Physician Notified NST: Dr. Ang BABY A: [id number] BABY A Movement : Present Contraction Frequency : Rare with irritability FHR Baseline : 145 Accelerations : 15X15 Variability : Moderate 6-25bpm NST Review: Meets Criteria for Reactive NST NST Review and Verified By : NAKUL Salmeron NST Results: Reactive NST REPORT Report Trigger: Send Report
[2017-10-22 19:06] LABS: URINE AMPHETAMINES SCREEN NEGATIVE; URINE BARBITURATES SCREEN NEGATIVE; URINE BENZODIAZEPINES SCREEN NEGATIVE; URINE COCAINE SCREEN NEGATIVE; URINE MARIJUANA (THC) SCREEN NEGATIVE; URINE METHADONE SCREEN NEGATIVE; URINE PHENCYCLIDINE SCREEN NEGATIVE
== END 2017-10-22 19:26 | disposition home or self-care (01) ==
LOC: LC 17:37
PROVIDERS: ATTEND Obstetrics & Gynecology
PROC: 4A1HXCZ Monitoring of Products of Conception, Cardiac Rate, External Approach (ICD-10-PCS; principal; 2017-10-22)
DX: O36.8130 Decreased fetal movements, third trimester, not applicable or unspecified (principal); Z3A.39 39 weeks gestation of pregnancy
CPT/HCPCS: 59025; 81005; 80307; J3490

== ENCOUNTER 2017-10-29 01:15 | Inpatient (IN) | payer MEDICAID ==
[2017-10-29 02:07] LABS: APPEARANCE,URINE CLOUDY; BILIRUBIN,URINE NEGATIVE (NEGATIVE); COLOR,URINE YELLOW; GLUCOSE, URINE NEGATIVE (NEGATIVE); KETONES,URINE TRACE mg/dL (NEGATIVE); LEUKOCYTE ESTERASE,URINE TRACE (NEGATIVE); NITRITE,URINE NEGATIVE (NEGATIVE); PROTEIN,URINE NEGATIVE (NEGATIVE); URINE SPECIFIC GRAVITY 1.012
[2017-10-29 02:45] LABS: URINE AMPHETAMINES SCREEN NEGATIVE; URINE BARBITURATES SCREEN NEGATIVE; URINE BENZODIAZEPINES SCREEN NEGATIVE; URINE COCAINE SCREEN NEGATIVE; URINE MARIJUANA (THC) SCREEN NEGATIVE; URINE METHADONE SCREEN NEGATIVE; URINE PHENCYCLIDINE SCREEN NEGATIVE
[2017-10-29 04:24] LABS: ABSOLUTE BASOPHILS # (AUTO) 0.1 10^3/uL (0.0-0.2); ABSOLUTE EOSINOPHILS # (AUTO) 0.2 10^3/uL (0.0-0.6); ABSOLUTE MONOCYTES (AUTO) 1.1 10^3/uL (0.1-1.4); ABSOLUTE NEUT (AUTO) 10.2 10^3/uL (1.7-8.2); BASOPHILS % (AUTO) 0.4 % (0-2); EOSINOPHILS % (AUTO) 1.2 % (0-6); HEMOGLOBIN 10.2 g/dL (12.0-15.5); LYMPHOCYTES % (AUTO) 14.8 % (13-45); MEAN CORPUSCULAR HEMOGLOBIN 28.7 pg (27.0-33.4); MEAN CORPUSCULAR VOLUME 87 fl (80-97); MONOCYTES % (AUTO) 8.3 % (3-13); PLATELET COUNT 299 10^3/uL (150-450); RED BLOOD COUNT 3.57 10^6/uL (3.72-5.28); RED CELL DISTRIBUTION WIDTH 15.6 % (11.5-14.0); SEGMENTED NEUTROPHILS % (AUTO) 75.3 % (42-78); TOTAL CELLS COUNTED % (AUTO) 100 %; WHITE BLOOD COUNT 13.6 10^3/uL (4.0-10.5)
--- NOTE | 2017-10-29 04:41 | RADIOLOGY REPORT (SQ) ---
EXAM DESCRIPTION: US LIMITED COMPLETED DATE/TME: 10/29/2017 00:00 CLINICAL HISTORY: 32 years, Female, placental status, vag bleed, abdominal tenderness COMPARISON: None. TECHNIQUE: Limited obstetrical ultrasound obtained with transabdominal imaging. FINDINGS: Cervical length: Not provided. FLACO: 6.5 cm. heart rate of 141 bpm. Placenta: Anterior. Intraplacental heterogeneous structure measuring 1.7 cm this may represent hemorrhage. presentation: Vertex. IMPRESSION: 1. Borderline low FLACO measuring 6.5 cm. 2. There is a 1.7 cm heterogeneous hypodense structure in the placenta was made represent intraplacental placental hemorrhage. 2011 [employer]- All Rights Reserved
--- NOTE | 2017-10-29 06:46 | Admission Physical ---
Datetime Report Generated by CPN: 10/29/2017 06:45 CURRENT ADMISSION Chief Complaint: Uterine Contractions Admit Impression : Term, Intrauterine Admit Plan: Initiate Labor Protocol ALLERGIES Medication Allergies: No Medication Allergies: No Known Allergies (10/29/2017) Latex: No Latex Allergies OBSTETRICAL HISTORY EDC: 10/27/2017 00:00 : 3 Para: 2 Term: 2 : 0 SAB: 0 IAB: 0 Ectopic: 0 Livin Cesareans: 0 VBACs: 0 Multiple Births: 0 Gestational Diabetes: Yes Rh Sensitization: No Incompetent Cervix: No JAYLIN: No Infertility: No ART Treatment: No Uterine Anomaly: No IUGR: No Hx Previous C/S: No Macrosomia: Yes Hx Loss/Stillborn: No PIH: No Hx : No Placenta Previa/Abruption: No Depression/PP Depression: No PTL/PROM: No Post Hemorrhage: No Current Procedures: Ultrasound Obstetrical History Comments: 39 weeks epidural female 6lb5oz g2 - 09/04/2011 41 weeks male 9lb2oz g3 - current (fundal fibroid; subchorionic bleed) SEE RECORDS Alcohol: No Marijuana : Yes Cocaine: No Other Illicit Drugs: No Cigarettes: Never Smoker. [id number] MEDICAL HISTORY Diabetes: Yes Diabetes Type: Gestational Diabetes Blood Transfusion: No Pulmonary Disease (Asthma, TB): Yes Breast Disease: No Hypertension: No Component Design Engineer Surgery: No Heart Disease: No Hosp/Surgery: Yes Autoimmune Disorder: No Anesthetic Complications: No Kidney Disease: No Abnormal Pap Smear: Yes Neuro/Epilepsy: No Psychiatric Disorders: No Other Medical Diseases: No Hepatitis/Liver Disease: No Significant Family History: No Varicosities/Phlebitis: No Trauma/Violence : No Thyroid Dysfunction: No Medical History Comments: asthma - albuterol PRN; abnormal pap with colpo _2011, [facility] INFECTIOUS HISTORY Gonorrhea: Yes Genital Herpes: No Chlamydia: Yes Tuberculosis: No Syphilis: No Hepatitis: No HIV/AIDS Exposure: No Rash or Viral Illness: No HPV: No Infectious History Comments: gonorrhea in 2005; chlamydia in 2005 and 2010; abnormal pap w/colpo PHYSICAL EXAM General: Normal HEENT: Normal Neurologic: Normal Thyroid: Normal Heart: Normal Lungs: Normal Breast: Deferred Back: Normal Abdomen: Normal Genitourinary Exam: Normal Extremities: Normal DTRs: Normal Pelvic Type: Adequate FETUS A EGA: 40.2 Monitoring: External US Admit Comment: echogenic area in placenta (venous baker or abruptio) PLANS FOR LABOR AND DELIVERY Labor and Delivery: None Pain Management: Epidural Feeding Preference: Both Benefit of Breast Feed Discussed: Yes Circumcision: Yes INFORMED CONSENT Signature: with User ID: [email or web address]
--- NOTE | 2017-10-29 08:45 | L&D Progress Notes ---
PROGRESS NOTES Datetime Report Generated by CPN: 10/29/2017 08:45 PROGRESS NOTE Impression: Reassuring Heart Rate Plan: Continue Present Management Informed Consent Obtained: Vaginal Delivery Vital Signs : Reviewed; Within Normal Limits Comment: Resting in bed, feels uc's, breathing thru them, desires epidural, pelvis proven 9-2, 3cm fundal fibroid, GBS neg, spotting SIGNATURE SIGNATURE: [id number];[id number];[id number] SIGNATURE: [id number];[id number] SIGNATURE: [id number] SIGNATURE: [id number] SIGNATURE: [id number] Assignment: Maribel Fry MD Signature: with User ID: [email or web address] : with User ID: [email or web address]
[2017-10-29] MEDS ORDERED: OXYTOCIN/NORMAL SALINE 20 UNIT/1,000 ML RTUINJ ONE (12:53)
[2017-10-29] MEDS ORDERED: MISOPROSTOL 0.2 MG TABLET ONE (12:53)
[2017-10-29] MEDS ORDERED: LIDOCAINE 1% INJ-PF (10 MG/ML) 30 ML SDV ONE (12:53)
[2017-10-29] MEDS: RINGERS SOLUTION,LACTATED 1,000 ML IV PRN ×2 (13:00→14:04)
[2017-10-29] MEDS ORDERED: FENTANYL/BUPIVACAINE/NS/PF 300 MCG/150 ML RTUINJ EPI ONE (13:35)
[2017-10-29] MEDS ORDERED: EPHEDRINE SULFATE INJ 50 MG/1 ML AMPULE ONE (13:35)
[2017-10-29] MEDS ORDERED: BUPIVACAINE HCL 0.25 % INJ/PF (2.5 MG/1 ML) 30 ML VIAL ONE (13:36)
[2017-10-29] MEDS ORDERED: PROMETHAZINE HCL 25 MG TABLET PO PRN (16:26)
[2017-10-29] MEDS ORDERED: DIPH/PERTUSS(ACELL)/TETANUS VAC/PF 0.5 ML SYR (>=10YO) IM PRN (16:26)
[2017-10-29] MEDS ORDERED: PROMETHAZINE HCL 25 MG SUPP.RECT PR PRN (16:26)
[2017-10-29] MEDS ORDERED: PROMETHAZINE HCL INJ 25 MG/1 ML VIAL IV PRN (16:26)
[2017-10-29] MEDS ORDERED: MEASLES,MUMPS&RUBELLA VACC/PF 0.5 ML VIAL SUBCUT PRN (16:26)
[2017-10-29] MEDS ORDERED: GLYCERIN/WITCH HAZEL LEAF 1 EACH MED..PAD TP PRN (16:26)
[2017-10-29] MEDS ORDERED: DIBUCAINE 1% OINTMENT 28 GM TP PRN (16:26)
[2017-10-29] MEDS ORDERED: ACETAMINOPHEN 650 MG SUPP.RECT PR PRN (16:26)
[2017-10-29] MEDS ORDERED: MISOPROSTOL 0.2 MG TABLET PR PRN (16:26)
[2017-10-29] MEDS ORDERED: OXYTOCIN/NORMAL SALINE 20 UNIT/1,000 ML RTUINJ IV PRN (16:26)
[2017-10-29] MEDS ORDERED: BENZOCAINE/MENTHOL AEROSOL SPRAY 56 ML TOP PRN (16:26)
[2017-10-29] MEDS ORDERED: PSEUDOEPHEDRINE HCL 30 MG TABLET PO PRN (16:26)
[2017-10-29] MEDS ORDERED: MAGNESIUM HYDROXIDE SUSP 30 ML UDCUP PO PRN (16:26)
[2017-10-29] MEDS ORDERED: DIPHENHYDRAMINE HCL 25 MG CAPSULE PO PRN (16:26)
[2017-10-29] MEDS ORDERED: NA PHOS,M-B/NA PHOS,DI-BA (ADULT) 133 ML ENEMA PR PRN (16:26)
[2017-10-29] MEDS ORDERED: ACETAMINOPHEN WITH CODEINE #3 TABLET PO PRN ×2 (16:26)
--- NOTE | 2017-10-29 16:29 | Warning Signs in Babies ---
VOD Warning Signs Datetime Report Generated by CPN: 10/29/2017 16:28 VOD#608 -Warning Signs in Babies: Viewed with Parent(s)/Family (10/29/2017 16:27:Yolanda Maguire RN)
--- NOTE | 2017-10-29 18:13 | Delivery Summary ---
Del Sum A-C Datetime Report Generated by CPN: 10/29/2017 18:12 DELIVERY PERSONNEL DELIVERY PERSONNEL: [id number] Delivery Doctor:: Lindsey Ritchie CNM Labor and Delivery Nurse:: Yolanda Maguire RN Index Clerk/HOME FURNISHINGS SALES REPRESENTATIVE: Darcie Delgado SPANISH LANGUAGE LECTURER MATERNAL INFORMATION Delivery Anesthesia: Epidural Medications After Delivery: Pitocin Bolus-Please Comment; Pitocin Drip 20 Units/1000ml NSS; Cytotec 600mcg Per Rectum/Vagina Maternal Complications: None Provider Comments: Pt progressed quickly and delivered a live male from OA to OCTAVIO ovr intact perineum, cord clamped and cut by FOB after 2 minutes, placed on mothers abd, spont delivery of grossly nl intact placenta, 3 VC, baby and mom remain in recovery in stable condition, FFFM, Pitocin, massage and Cytotec 600 mcg via rectum LABOR SUMMARY EDC: 10/27/2017 00:00 No. Babies in Womb: 1 Attempted: No Labor Anesthesia: Epidural LABOR INFORMATION Reason for Induction: Not Applicable Onset of Labor: 10/29/2017 13:00 Complete Dilatation: 10/29/2017 16:05 Oxytocin: Augmentation Group B Beta Strep: negative Antibiotics # of Doses: 0 Name of Antibiotic Given: n/a Steroids Given: None Reason Steroids Not Administered: Not Applicable MEMBRANES Membranes Rupture Method: Artificial Rupture of Membranes: 10/29/2017 13:22 Length of Rupture (hr): 2.83 Amniotic Fluid Color: Clear Amniotic Fluid Amount: Scant Amniotic Fluid Odor: Normal STAGES OF LABOR Stage 1 hr: 3 Stage 1 min: 5 Stage 2 hr: 0 Stage 2 min: 7 Stage 3 hr: 0 Stage 3 min: 4 Total Time in Labor hr: 3 Total Time in Labor min: 16 VAGINAL DELIVERY Episiotomy: None Laceration #1: None Laceration Extension #1: N/A Laceration Repair: Not Applicable Sponge Count Correct: N/A Sharps Count Correct: N/A CSECTION DELIVERY Primary Indication: N/A Secondary Indication: N/A CSection Incidence: N/A Labor: N/A Elective: N/A CSection Incision: N/A BABY A INFORMATION Delivery Date/Time: 10/29/2017 16:12 Method of Delivery: Vaginal Born in Route : No : N/A Forceps: N/A Vacuum Extraction: N/A Shoulder Dystocia : No PRESENTATION/POSITION BABY A Presentation: Cephalic Cephalic Presentation: Vertex Vertex Position: Right Occipital Anterior Breech Presentation: N/A PLACENTA INFORMATION BABY A Placenta Delivery Time : 10/29/2017 16:16 Placenta Method of Delivery: Spontaneous Placenta Status: Delivered SCORES BABY A Heart Rate 1 min: >100 bpm Resp Effort 1 min: Good Cry Reflex Irritability 1 min: Cough or Sneeze or Pulls Away Muscle Tone 1 min: Active Motion Color 1 min: Body [place], Extremities Blue Resuscitation Effort 1 min: Tactile Stimulation SCORE 1 MIN: 9 Heart Rate 5 min: >100 bpm Resp Effort 5 min: Good Cry Reflex Irritability 5 min: Cough or Sneeze or Pulls Away Muscle Tone 5 min: Active Motion Color 5 min: Completely [place] Resuscitation Effort 5 min: Tactile Stimulation SCORE 5 MIN: 10 INFORMATION BABY A Gestational Age at Delivery: 40.2 Gestational Status: Full Term- 39- 40.6 Weeks Outcome : Liveborn Condition : Stable Sex: Male IDENTIFICATION BABY A Infant Verification Date/Time: 10/29/2017 16:39 ID Band Number: [id number] Mother's Name Verified: Yes Infant RN Verifying Infant: Peña, RN/CRobert, RN WEIGHT/LENGTH BABY A Birthweight (gm): 3060 Infant Weight (lb): 6 Weight (oz): 12 Length (in): 20.25 Length (cm): 51.44 CORD INFORMATION BABY A No. Cord Vessels: 3 Nuchal Cord : N/A True Knot: 0 Cord Blood Taken: Yes-For Storage (Mom's Blood type +) Suction: None ASSESSMENT BABY A Complications: None Physical Findings at Delivery: Within Normal Limits Respirations: Appears Normal Skin to Skin: Yes Skin to Skin Time (min): 30 Manager Engine/ALS Called : No Care By: Drake Maguire RN Transferred To: Remains with Mother BABY B INFORMATION : N/A
[2017-10-29] MEDS: DOCUSATE SODIUM 100 MG CAPSULE PO SCH (18:58)
[2017-10-29] MEDS: FERROUS SULFATE 325 MG TABLET PO SCH (18:59)
[2017-10-29] MEDS: FAMOTIDINE 20 MG TABLET PO SCH (21:14)
[2017-10-29] MEDS: IBUPROFEN 800 MG TABLET PO SCH (21:15)
[2017-10-30] MEDS: IBUPROFEN 800 MG TABLET PO SCH ×3 (06:25→21:14)
[2017-10-30 07:34] LABS: HEMATOCRIT 33.3 % (36.0-47.0); HEMOGLOBIN 10.9 g/dL (12.0-15.5); MEAN CORPUSCULAR HEMOGLOBIN 28.7 pg (27.0-33.4); MEAN CORPUSCULAR HGB CONC 32.8 g/dL (32.0-36.0); MEAN CORPUSCULAR VOLUME 88 fl (80-97); PLATELET COUNT 301 10^3/uL (150-450); RED BLOOD COUNT 3.81 10^6/uL (3.72-5.28); RED CELL DISTRIBUTION WIDTH 15.9 % (11.5-14.0); WHITE BLOOD COUNT 17.2 10^3/uL (4.0-10.5)
[2017-10-30] MEDS: FAMOTIDINE 20 MG TABLET PO SCH ×2 (09:04→21:15)
[2017-10-30] MEDS: DOCUSATE SODIUM 100 MG CAPSULE PO SCH ×2 (09:04→17:48)
[2017-10-30] MEDS: PRENATAL VITAMIN W DHA CAPSULE PO SCH (09:04)
[2017-10-30] MEDS: SENNOSIDES/DOCUSATE 8.6-50 MG 1 EACH TABLET PO SCH (09:04)
[2017-10-30] MEDS: FERROUS SULFATE 325 MG TABLET PO SCH ×2 (09:05→17:48)
--- NOTE | 2017-10-30 09:05 | PDOC PROGRESS REPORT ---
Subjective-OB Progress Note for:: 10/30/17 Physical Exam (OB) Vital Signs: Temp Pulse Resp BP Pulse Ox 97.8 F 69 15 130/80 H 99 10/30/17 08:19 10/30/17 08:19 10/30/17 08:19 10/30/17 08:19 10/30/17 08:19 Intake & Output 10/29/17 10/30/17 10/31/17 06:59 06:59 06:59 Weight 63.7 kg - PIH/Pre-Eclampsia Clonus: Negative Headache: Absent Epigastric Pain: No Visual Changes: No - Lochia Lochia Amount: Scant < 10 ml Lochia Color: Rubra/Red - Abdomen Description: Soft, Round Hernia Present: No Bowel Sounds: Normoactive Flatus Presence: Present Stool: Yes Fundal Description: Firm Fundal Height: u/u - u/2 Objective-Diagnostic Laboratory: 10/30/17 07:18 10/30/17 07:18 WBC 17.2 H RBC 3.81 Hgb 10.9 L Hct 33.3 L MCV 88 MCH 28.7 MCHC 32.8 RDW 15.9 H Plt Count 301
[2017-10-31] MEDS: IBUPROFEN 800 MG TABLET PO SCH (06:38)
[2017-10-31 07:57] LABS: HEMATOCRIT 31.1 % (36.0-47.0); HEMOGLOBIN 10.3 g/dL (12.0-15.5); MEAN CORPUSCULAR HEMOGLOBIN 29.1 pg (27.0-33.4); MEAN CORPUSCULAR HGB CONC 33.3 g/dL (32.0-36.0); MEAN CORPUSCULAR VOLUME 87 fl (80-97); PLATELET COUNT 293 10^3/uL (150-450); RED BLOOD COUNT 3.56 10^6/uL (3.72-5.28); RED CELL DISTRIBUTION WIDTH 15.8 % (11.5-14.0); WHITE BLOOD COUNT 10.9 10^3/uL (4.0-10.5)
[2017-10-31] MEDS: FAMOTIDINE 20 MG TABLET PO SCH (09:34)
[2017-10-31] MEDS: SENNOSIDES/DOCUSATE 8.6-50 MG 1 EACH TABLET PO SCH (09:34)
[2017-10-31] MEDS: PRENATAL VITAMIN W DHA CAPSULE PO SCH (09:34)
[2017-10-31] MEDS: FERROUS SULFATE 325 MG TABLET PO SCH (09:34)
[2017-10-31] MEDS: DOCUSATE SODIUM 100 MG CAPSULE PO SCH (09:34)
--- NOTE | 2017-10-31 09:45 | PDOC DISCHARGE SUMMARY ---
Final Diagnosis Discharge Date: 10/31/17 - Final Diagnosis (1) Asthma Is this a current diagnosis for this admission?: Yes (2) Delivery normal Is this a current diagnosis for this admission?: Yes Discharge Data - Discharge Medication Prescriptions: Albuterol Sulfate [Albuterol Sulfate 2.5mg/3 mL] 2 puff IH Q4HP PRN #1 puff PRN Reason: Budesonide [Pulmicort 90 mcg Flexhaler] 1 inh IH DAILY #1 aer.[email or web address] Ibuprofen [Motrin 800 mg Tablet] 800 mg PO Q8HP PRN #60 tablet PRN Reason: Home Medications: Vit/Iron Fum/Folic AC [ Tablet] 1 each PO DAILY 08/25/17 Albuterol Sulfate [Albuterol Sulfate 2.5mg/3 mL] 2 puff IH Q4HP PRN #1 puff Budesonide [Pulmicort 90 mcg Flexhaler] 1 inh IH DAILY #1 aer.pow.ba 10/31/17 Ibuprofen [Motrin 800 mg Tablet] 800 mg PO Q8HP PRN #60 tablet 10/31/17 Procedures: NST Intrapartum Procedure(s): Spontaneous Vaginal Delivery - Diagnosis Test Laboratory: Temp Pulse Resp BP Pulse Ox 98.0 F 79 15 124/73 99 10/31/17 08:14 10/31/17 08:14 10/31/17 08:14 10/31/17 08:14 10/31/17 08:14 10/29/17 10/29/17 10/30/17 01:20 03:56 07:18 RBC 3.57 L 3.81 Hgb 10.2 L 10.9 L Hct 31.0 L 33.3 L Urine Opiates Screen NEGATIVE 10/31/17 06:53 RBC 3.56 L Hgb 10.3 L Hct 31.1 L Urine Opiates Screen - Discharge information/Instructions Discharge Activity: Balance Activity w/Rest, Pelvic Rest Discharge Diet: Regular Disposition: HOME, SELF-CARE Follow up with: [facility] in: 4, Weeks
[2017-10-31 10:02] VITALS: BP 129/64
== END 2017-10-31 12:45 | disposition home or self-care (01) | DRG 775 ==
LOC: LC 01:15 → LR 03:37 → 2S 18:40
PROVIDERS: ADMIT Obstetrics & Gynecology Gynecology; ATTEND Obstetrics & Gynecology Gynecology
PROC: 10E0XZZ Delivery of Products of Conception, External Approach (ICD-10-PCS; principal; 2017-10-29)
PROC: 10907ZC Drainage of Amniotic Fluid, Therapeutic from Products of Conception, Via Natural or Artificial Opening (ICD-10-PCS; 2017-10-29)
PROC: 4A1HXCZ Monitoring of Products of Conception, Cardiac Rate, External Approach (ICD-10-PCS; 2017-10-29)
PROC: 3E0234Z Introduction of Serum, Toxoid and Vaccine into Muscle, Percutaneous Approach (ICD-10-PCS; 2017-10-31)
DX: O99.52 Diseases of the respiratory system complicating childbirth (principal); J45.909 Unspecified asthma, uncomplicated; O34.13 Maternal care for benign tumor of corpus uteri, third trimester; D25.9 Leiomyoma of uterus, unspecified; O24.429 Gestational diabetes mellitus in childbirth, unspecified control; Z23 Encounter for immunization; Z3A.40 40 weeks gestation of pregnancy; Z37.0 Single live birth
CPT/HCPCS: 36415; 76815; 80307; 81005; 85025; 85027; 86592; 86850; 86900; 86901; 90715; 94760; J2590; J3010; J3490; Q0114

== ENCOUNTER 2018-08-27 19:54 | Emergency (ER) | payer MEDICAID ==
[2018-08-27 20:12] VITALS: BP 128/81
== END 2018-08-27 20:15 | disposition left against medical advice (07) ==
LOC: ER 19:54
DX: Z53.21 Procedure and treatment not carried out due to patient leaving prior to being seen by health care provider (principal)

== ENCOUNTER 2018-10-20 18:43 | Emergency (ER) | payer SELFPAY ==
--- NOTE | 2018-10-20 20:59 | ER Document Report ---
HPI - HPI Patient complains to provider of: Ear feels clogged Time Seen by Provider: 10/20/18 20:26 Onset: This evening Onset/Duration: Gradual Quality of pain: Achy Pain Level: 3 Context: Patient states that she felt like her ear was clogged today. Patient denies any fever or drainage from the ear. Associated Symptoms: Earache. denies: Fever Exacerbated by: Denies Relieved by: Denies Similar symptoms previously: No Recently seen / treated by doctor: No - ROS ROS below otherwise negative: Yes Systems Reviewed and Negative: Yes All other systems reviewed and negative - EENT EENT: REPORTS: Ear Pain - GASTROINTESTINAL Gastrointestinal: DENIES: Nausea, Patient vomiting - REPRODUCTIVE Reproductive: DENIES: : - DERM Skin Color: Normal Skin Problems: None Past Medical History - General Information source: Patient - Social History Smoking Status: Never Smoker Frequency of alcohol use: Occasional Drug Abuse: None Occupation: Foodservice Family History: Reviewed & Not Pertinent Pulmonary Medical History: Reports: Hx Asthma Neurological Medical History: Reports: Hx Migraine Renal/ Medical History: Denies: Hx Peritoneal Dialysis Surgical Hx: Negative - Immunizations Immunizations up to date: Yes Hx Diphtheria, Pertussis, Tetanus Vaccination: No Hx Pneumococcal Vaccination: 09/06/11 Vertical Provider Document - CONSTITUTIONAL Agree With Documented VS: Yes Exam Limitations: No Limitations General Appearance: WD/WN, No Apparent Distress - INFECTION CONTROL TRAVEL OUTSIDE OF THE [place] IN LAST 30 DAYS: No - HEENT HEENT: Atraumatic, Normocephalic Notes: Cerumen impaction to right ear, left ear normal TM, left ear with normal external auditory canal - NECK Neck: Normal Inspection, Supple - RESPIRATORY Respiratory: Breath Sounds Normal, No Respiratory Distress - CARDIOVASCULAR Cardiovascular: Regular Rate, Regular Rhythm - MUSCULOSKELETAL/EXTREMETIES Musculoskeletal/Extremeties: MAEW - NEURO Level of Consciousness: Awake, Alert, Appropriate Motor/Sensory: No Motor Deficit - DERM Integumentary: Warm, Dry Course - Re-evaluation Re-evalutation: 10/20/18 21:18 Ear irrigated with warm water and hydrogen peroxide. Excessive cerumen removed. Patient with small abrasion to right external auditory canal. Will start patient on antibiotic eardrops. - Vital Signs Vital signs: Temp Pulse Resp BP Pulse Ox 98.3 F 84 16 125/87 H 96 10/20/18 18:51 10/20/18 18:51 10/20/18 18:51 10/20/18 18:51 10/20/18 18:51 Discharge - Discharge Clinical Impression: Impacted cerumen of right ear Ear canal abrasion Qualifiers: Encounter type: initial encounter Laterality: right Qualified Code(s): S00.411A - Abrasion of right ear, initial encounter Condition: Stable Disposition: HOME, SELF-CARE Instructions: Cerumen Impaction ([facility]) Additional Instructions: Return immediately for any new or worsening symptoms Followup with your primary care provider, call tomorrow to make a followup appointment Instill 4 drops of the Cortisporin ear drops solution to the right ear 4 times a day for the next 5 days. Referrals: LIBERTY VALVERDE MD [ACTIVE STAFF] - Follow up as needed
[2018-10-20] MEDS ORDERED: NEOMY SULF/POLYMYX B SULF/HC OTIC SUSP 10 ML AD ONE (21:16)
[2018-10-20 21:40] VITALS: BP 133/78
== END 2018-10-20 21:34 | disposition home or self-care (01) ==
LOC: ER 18:43
DX: H61.21 Impacted cerumen, right ear (principal); S00.411A Abrasion of right ear, initial encounter; X58.XXXA Exposure to other specified factors, initial encounter; J45.909 Unspecified asthma, uncomplicated
CPT/HCPCS: 99282; J3490

== ENCOUNTER 2018-10-30 09:56 | Emergency (ER) | payer SELFPAY ==
[2018-10-30] MEDS ORDERED: CEFTRIAXONE INJ 250 MG VIAL IM ONE (10:12)
[2018-10-30] MEDS ORDERED: LIDOCAINE 1% INJ-PF (10 MG/ML) 30 ML SDV IM ONE (10:12)
[2018-10-30] MEDS ORDERED: AZITHROMYCIN 250 MG TABLET PO ONE (10:12)
--- NOTE | 2018-10-30 10:14 | ER Document Report ---
HPI - HPI Time Seen by Provider: 10/30/18 10:06 Pain Level: 3 Notes: Patient is a 33-year-old female presented to the emergency department with complaints of abnormal vaginal discharge. Patient reports she had intercourse with somebody who told her he had an STD approximately 1 week ago. She reports thick foul-smelling discharge and dysuria. Patient denies any abdominal pain or pelvic pain. She also denies any fever. She has past medical history of asthma but is otherwise healthy. - REPRODUCTIVE LMP: 10/21/18 Reproductive: DENIES: : Past Medical History - General Information source: Patient - Social History Smoking Status: Never Smoker Frequency of alcohol use: Occasional Drug Abuse: None Family History: Reviewed & Not Pertinent Patient has suicidal ideation: No Patient has homicidal ideation: No Pulmonary Medical History: Reports: Hx Asthma Neurological Medical History: Reports: Hx Migraine Renal/ Medical History: Denies: Hx Peritoneal Dialysis - Immunizations Immunizations up to date: Yes Hx Diphtheria, Pertussis, Tetanus Vaccination: No Hx Pneumococcal Vaccination: 09/06/11 Vertical Provider Document - CONSTITUTIONAL Notes: PHYSICAL EXAMINATION: GENERAL: Well-appearing, well-nourished and in no acute distress. HEAD: Atraumatic, normocephalic. EYES: Pupils equal round extraocular movements intact, conjunctiva are normal. ENT: Nares patent NECK: Normal range of motion LUNGS: No respiratory distress Abdomen: Abdomen soft, nontender no guarding no rebound. Musculoskeletal: Normal range of motion NEUROLOGICAL: Normal speech, normal gait. PSYCH: Normal mood, normal affect. SKIN: Warm, Dry, normal turgor, no rashes or lesions noted. - INFECTION CONTROL TRAVEL OUTSIDE OF THE [place] IN LAST 30 DAYS: No Course - Re-evaluation Re-evalutation: Laboratory 10/30/18 10/30/18 10/30/18 10:18 10:18 10:18 Urine Color YELLOW Urine Appearance SLIGHTLY-CLOUDY Urine pH 6.0 Ur Specific [place] 1.020 Urine Protein NEGATIVE Urine Glucose (UA) NEGATIVE Urine Ketones NEGATIVE Urine Blood NEGATIVE Urine Nitrite NEGATIVE Urine Bilirubin NEGATIVE Urine Urobilinogen 2.0 H Ur Leukocyte Esterase MODERATE H Urine WBC 20-30 Ur Squamous Epith Cells FEW Urine Bacteria 2+ Urine Mucus 1+ Urine Ascorbic Acid NEGATIVE Bacteria (Wet Prep) 3+ BACTERIA SEEN Trichomonas (Wet Prep) NO TRICHOMONAS SEEN Vaginal WBC FEW WBCS SEEN Vaginal Yeast YEAST SEEN Chlamydia DNA (PCR) NOT DETECTED N.gonorrhoeae DNA (PCR) NOT DETECTED We will treat for urinary tract infection and bacterial vaginitis. Chlamydia and gonorrhea are still pending however treat patient was treated with azithromycin and ceftriaxone. ED return precautions discussed. The patient's emergency department workup and current diagnosis were explained to the patient and or family. Follow-up instructions were provided. Medications if prescribed were discussed. Instructions for when to return to the emergency department including specific worrisome symptoms were discussed with the patient and/or family. - Vital Signs Vital signs: Temp Pulse Resp BP Pulse Ox 98.1 F 98 18 139/75 H 96 10/30/18 09:57 10/30/18 09:57 10/30/18 09:57 10/30/18 09:57 10/30/18 09:57 Discharge - Discharge Clinical Impression: Bacterial vaginosis, STD exposure Urinary tract infection Qualifiers: Urinary tract infection type: site unspecified Hematuria presence: without hematuria Qualified Code(s): N39.0 - Urinary tract infection, site not specified Condition: Stable Disposition: HOME, SELF-CARE Additional Instructions: Your urine shows findings consistent with a urinary tract infection. Please ta ke all the antibiotics as directed even if your symptoms have improved. Please follow-up with your primary care physician as needed. Return to emergency room if you develop fever >101F, persistent vomiting, become lethargic, have severe pain in your sides, or any other symptoms that are concerning to you. You have an overgrowth of natural vaginal bacteria, called bacterial vaginosis. You are being treated with an antibiotic called metronidazole. Do not drink alcohol while taking this medication. Complete all of the antibiotic even if your symptoms have resolved. Return for abdominal pain, vomiting, fever of greater than 101F, or any other symptoms that are worrisome to you. Please follow-up with your FINANCIAL SALES REPRESENTATIVE or primary care doctor as needed. Prescriptions: Cephalexin [Cephalexin 500 MG Tablet] 1 tab PO BID #14 tablet Metronidazole [Flagyl 500 mg Tablet] 500 mg PO BID #14 tablet
[2018-10-30 10:29] LABS: T.VAGINALIS (WET MOUNT) NO TRICHOMONAS SEEN; YEAST (WET MOUNT) YEAST SEEN
[2018-10-30 10:30] LABS: BACTERIA (WET MOUNT) 3+ BACTERIA SEEN; WBCS (WET MOUNT) FEW WBCS SEEN
[2018-10-30 10:43] LABS: APPEARANCE,URINE SLIGHTLY-CLOUDY; BILIRUBIN,URINE NEGATIVE (NEGATIVE); COLOR,URINE YELLOW; GLUCOSE, URINE NEGATIVE (NEGATIVE); KETONES,URINE NEGATIVE (NEGATIVE); LEUKOCYTE ESTERASE,URINE MODERATE (NEGATIVE); NITRITE,URINE NEGATIVE (NEGATIVE); PROTEIN,URINE NEGATIVE (NEGATIVE)
[2018-10-30 10:51] LABS: ADD MANUAL MICROSCOPIC YES
[2018-10-30 11:01] LABS: BACTERIA,URINE 2+ /HPF; WBC,URINE 20-30 /HPF
[2018-10-30 11:28] VITALS: BP 120/76
[2018-10-30 12:02] LABS: CHLAM PCR NOT DETECTED (NOT DETECT)
== END 2018-10-30 11:28 | disposition home or self-care (01) ==
LOC: ER 09:56
DX: N39.0 Urinary tract infection, site not specified (principal); N76.0 Acute vaginitis; B96.89 Other specified bacterial agents as the cause of diseases classified elsewhere; Z20.2 Contact with and (suspected) exposure to infections with a predominantly sexual mode of transmission
CPT/HCPCS: 99283; 96374; 96375; 87086; 87210; 81001; 87491; 87591; J3490; J0696

== ENCOUNTER 2018-11-03 16:03 | Emergency (ER) | payer SELFPAY ==
--- NOTE | 2018-11-03 17:34 | ER Document Report ---
ED Medical Screen (RME) - General Chief Complaint: Redness of Eye Stated Complaint: EYE PAIN Time Seen by Provider: 11/03/18 17:23 Notes: 33-year-old female with no past medical history presents to the emergency department with chief complaint of right eye redness and pain since yesterday afternoon. She says she was working at the [employer] when she suddenly got a stabbing headache in the temporal region that did calm down, she was complaining of some mild discomfort, then woke up this morning with significant eye pain and scleral injection. She can pinpoint an area when she closes her eye on her eyelids where the pain is the worst. She complains of some mild blurred vision, no double vision, no eye entrapment. I have greeted and performed a rapid initial assessment of this patient. A comprehensive ED assessment and evaluation of the patient, analysis of test results and completion of medical decision making process will be conducted by an additional ED providers. TRAVEL OUTSIDE OF THE [place] IN LAST 30 DAYS: No - Related Data Allergies/Adverse Reactions: No Known Allergies Allergy (Verified 11/03/18 16:06) Past Medical History - Social History Chew tobacco use (# tins/day): No Frequency of alcohol use: Occasional Drug Abuse: None Pulmonary Medical History: Reports: Hx Asthma Neurological Medical History: Reports: Hx Migraine Renal/ Medical History: Denies: Hx Peritoneal Dialysis - Immunizations Immunizations up to date: Yes Hx Diphtheria, Pertussis, Tetanus Vaccination: No History of Influenza Vaccine for 01/2017 - 06/2017 Season: No Physical Exam - Vital signs Vitals: Temp Pulse Resp BP Pulse Ox 98.0 F 94 17 127/82 H 95 11/03/18 16:10 11/03/18 16:10 11/03/18 16:10 11/03/18 16:10 11/03/18 16:10 - Notes Notes: PHYSICAL EXAMINATION: Reviewed vital signs and charting by RN GENERAL: Alert, interacts well. No acute distress. HEAD: Normocephalic, atraumatic. EYES: Pupils equal and round. Extraocular movements intact. Scleral injection right eye ENT: Oral mucosa moist, tongue midline. NECK: Full range of motion. Trachea midline. EXTREMITIES: Moves all 4 extremities spontaneously. No edema, No cyanosis. PSYCH: Normal affect, normal mood. SKIN: Warm, dry, normal turgor. No rashes or lesions noted. Course - Vital Signs Vital signs: Temp Pulse Resp BP Pulse Ox 98.0 F 94 17 127/82 H 95 11/03/18 16:10 11/03/18 16:10 11/03/18 16:10 11/03/18 16:10 11/03/18 16:10
[2018-11-03] MEDS ORDERED: ONDANSETRON 4 MG TAB.RAPDIS PO ONE (20:37)
[2018-11-03] MEDS ORDERED: OXYCODONE-ACETAMINOPHEN 5-325 MG TABLET PO ONE (20:37)
--- NOTE | 2018-11-03 20:49 | ER Document Report ---
ED Eye Complaint - General Chief Complaint: Redness of Eye Stated Complaint: EYE PAIN Time Seen by Provider: 11/03/18 17:23 Notes: Patient is a 33-year-old female that comes to the emergency department for chief complaint of right eye pain. She states she got a headache yesterday and her eye was bothering her at that time, when she woke up it felt like she could not open her eye, she is extremely sensitive to the light, she also has pain when she touches her upper eyelid. She denies pain when moving the eye [id number]. She denies visual loss, discolored drainage, she is only drained tears. She denies using visual correction or history of the same. She has had a lot of sinus congestion persistently recently. She is a history of asthma, takes no daily medications, denies medical history otherwise. TRAVEL OUTSIDE OF THE [place] IN LAST 30 DAYS: No - Related Data Allergies/Adverse Reactions: No Known Allergies Allergy (Verified 11/03/18 16:06) Past Medical History - General Information source: Patient - Social History Smoking Status: Never Smoker Chew tobacco use (# tins/day): No Frequency of alcohol use: Occasional Drug Abuse: None Lives with: Family Family History: Reviewed & Not Pertinent Patient has suicidal ideation: No Patient has homicidal ideation: No Pulmonary Medical History: Reports: Hx Asthma Neurological Medical History: Reports: Hx Migraine Renal/ Medical History: Denies: Hx Peritoneal Dialysis - Immunizations Immunizations up to date: Yes Hx Diphtheria, Pertussis, Tetanus Vaccination: Yes Hx Pneumococcal Vaccination: 09/06/11 Review of Systems - Review of Systems Constitutional: No symptoms reported EENT: See HPI Cardiovascular: No symptoms reported Respiratory: No symptoms reported Gastrointestinal: No symptoms reported Genitourinary: No symptoms reported Female Genitourinary: No symptoms reported Musculoskeletal: No symptoms reported Skin: No symptoms reported Hematologic/Lymphatic: No symptoms reported Neurological/Psychological: No symptoms reported Physical Exam - Vital signs Vitals: Temp Pulse Resp BP Pulse Ox 98.0 F 94 17 127/82 H 95 11/03/18 16:10 11/03/18 16:10 11/03/18 16:10 11/03/18 16:10 11/03/18 16:10 - Notes Notes: GENERAL: Alert, interacts well. Covering her eyes but otherwise does not appear to be in distress. HEAD: Normocephalic, atraumatic. EYES: Pupils are pinpoint. Right pupil is very constricted and does not relax even in the darkness. There is a lot of photophobia in the right eye, there is also consensual response photophobia (discomfort when light is flashed in the left eye, causing discomfort in the right eye with the response). Extraocular movements intact and not painful. Sclerae very injected in the right eye only, especially over the inferior aspect. No discharge. No superficial foreign body, no fluorescein uptake, negative Lb sign. Intraocular pressure is averaging at 19 with 95% confidence. ENT: Oral mucosa moist, tongue midline. Oropharynx unremarkable. Airway patent. Nares congested with some turbinate swelling, no nasal septal hematoma. NECK: Full range of motion. Supple. Trachea midline. LUNGS: Clear to auscultation bilaterally, no wheezes, rales, or rhonchi. No respiratory distress. HEART: Regular rate and rhythm. No murmur ABDOMEN: Soft, non-tender. Non-distended EXTREMITIES: Moves all 4 extremities spontaneously. No edema, normal radial and dorsalis pedis pulses bilaterally. No cyanosis. BACK: no cervical, thoracic, lumbar midline tenderness. No saddle anesthesia, normal distal neurovascular exam. NEUROLOGICAL: Alert and oriented x3. Normal speech. Cranial nerves II through XII grossly intact. PSYCH: Normal affect, normal mood. SKIN: Warm, dry, normal turgor. No rashes or lesions noted. Course - Re-evaluation Re-evalutation: Patient's evaluation shows photophobia, constricted pupil on the right, pain with flashing light over the right eye and pain with consensual pupillary reflex. There is also obvious injection of the conjunctiva of the right eye. There is no swelling of the eyelid or periorbital edema. Does not appear to be septal or preseptal cellulitis. No foreign body or injury noted. Patient specifically only has pain in the eye and does not report any headache. I do not suspect temporal arteritis evaluation, I do not suspect intracranial hemorrhage based on her reported symptoms and her eye examination. Dr. Beltrán did evaluate the patient at bedside, she recommends ophthalmology consult. We do not have ophthalmology tax commissioner, therefore I called and spoke with Anna Marie Douglas and their on-call provider, I spoke with Dr. Herron, snow technician, she recommends that this is most likely uveitis, she recommends a drop of whatever medication we had to dilate the pupil (we do have homatropine, this will be given, this was discussed), she will be placed on erythromycin ointment and she will follow-up in the clinic tomorrow for additional evaluation. She will also be provided with pain control. I did discuss this with patient, discussed the treatment and referral, patient states she will call and be seen tomorrow. Discussed return precautions. Patient states understanding and agreement with plan. - Vital Signs Vital signs: Temp Pulse Resp BP Pulse Ox 97.7 F 88 17 129/82 H 99 11/03/18 21:33 11/03/18 21:33 11/03/18 21:33 11/03/18 21:33 11/03/18 21:33 Discharge - Discharge Clinical Impression: Acute right eye pain, Uveitis of right eye Condition: Stable Disposition: HOME, SELF-CARE Instructions: Oral Narcotic Medication ([facility]) Additional Instructions: Your evaluation is consistent with uveitis. You have been given a drop of homatropine to help with your symptoms, also use the topical erythromycin ointment (antibiotic dropp, place about 1 cm ribbon into right eye 4 times daily). Take the provided pain medication from [facility] if needed. I spoke with Dr. Herron, ophthalmology, she requests that you call them at [phone] in the morning to be seen and for additional management. Return if you worsen including loss of vision, swelling of the eye, fever, severe worsening pain, or any other concerning or worsening symptoms. Forms: Return to Work
[2018-11-03 21:37] VITALS: BP 129/82
[2018-11-03] MEDS ORDERED: HOMATROPINE HBR 5% OPH SOLN 5 ML OD ONE (21:41)
[2018-11-03] MEDS ORDERED: HYDROCODONE/ACETAMINOPHEN 5-325 MG (6 TAB/ER DISP) PO PRN (21:41)
[2018-11-03] MEDS ORDERED: ERYTHROMYCIN 0.5% OPH OINT 1 GM UNIT DOSE OD ONE (22:15)
--- NOTE | 2018-11-04 04:04 | ER Document Report ---
Doctor's Note Notes: 11/04/18 04:01 Patient seen in conjunction with the physician custody assistant. Please see his note correlate with mine. In short this patient coming to the emergency department complaining of eye redness and eye pain. She had specific photophobia. She denies any injury. She is not a contact lens wear. She denies any noticeable blurred vision. She has had recent "sinus issues" but otherwise denies any other recent illnesses. She has not had any discharge at the eye. On physical exam she has significantly injected conjunctiva and sclera on the right. Her pupils are constricted, minimally reactive to light. She has no significant eyelid changes, extraocular muscles are intact. She has marked photophobia on exam. Her pupil miosis made internal eye exam very challenging. Unable to comment on retina. I did see the patient in conjunction with the physician custody assistant recommended ophthalmology consult. He did speak with ophthalmology who states this is likely uveitis. I commended treatment with the cycloplegic here for pain, given prescription for antibiotics and close ophthalmologic follow-up.
== END 2018-11-03 22:29 | disposition home or self-care (01) ==
LOC: ER 16:03
DX: H57.11 Ocular pain, right eye (principal); H20.9 Unspecified iridocyclitis; R51 Headache; R09.81 Nasal congestion; J45.909 Unspecified asthma, uncomplicated
CPT/HCPCS: 99282; S0119; J3490

== ENCOUNTER 2018-11-25 20:34 | Emergency (ER) | payer OTHER, MEDICAID ==
--- NOTE | 2018-11-25 22:55 | RADIOLOGY REPORT (SQ) ---
EXAM DESCRIPTION: XR SHOULDER 2 OR MORE VIEWS COMPLETED DATE/TME: 11/25/2018 21:45 CLINICAL HISTORY: 33 years, Female, bone tenderness COMPARISON: None. NUMBER OF VIEWS: 3 TECHNIQUE: Three views RIGHT shoulder were obtained in AP, internal/external rotation and transcapular projections. LIMITATIONS: None. FINDINGS: There is no fracture or dislocation. The joint spaces are preserved. No soft tissue abnormalities are seen. IMPRESSION: No acute radiographic abnormality. copyright 2010 [employer]- All Rights Reserved
--- NOTE | 2018-11-25 22:56 | RADIOLOGY REPORT (SQ) ---
EXAM DESCRIPTION: XR FEMUR 2 VIEWS COMPLETED DATE/TME: 11/25/2018 21:45 CLINICAL HISTORY: 33 years, Female, bone tenderness COMPARISON: None. NUMBER OF VIEWS: 4 TECHNIQUE: Four views of the RIGHT femur were obtained in AP and lateral projection. LIMITATIONS: None. FINDINGS: There is no fracture or dislocation. The joint spaces are preserved. No soft tissue abnormalities are seen. IMPRESSION: No acute radiographic abnormality. copyright 2010 [employer]- All Rights Reserved
[2018-11-25] MEDS ORDERED: DIPH/PERTUSS(ACELL)/TETANUS VAC/PF 0.5 ML SYR (>=10YO) IM ONE (23:50)
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
[2018-11-25] MEDS ORDERED: CYCLOBENZAPRINE HCL 10 MG TABLET PO ONE (23:51)
[2018-11-25] MEDS ORDERED: IBUPROFEN 600 MG TABLET PO ONE (23:51)
[2018-11-25] MEDS ORDERED: BACITRACIN ZINC OINTMENT 15 GM TP ONE (23:51)
[2018-11-26 00:25] VITALS: BP 122/77
== END 2018-11-26 00:26 | disposition home or self-care (01) ==
LOC: ER 20:34
DX: S43.401A Unspecified sprain of right shoulder joint, initial encounter (principal); S40.021A Contusion of right upper arm, initial encounter; S40.811A Abrasion of right upper arm, initial encounter; V89.2XXA Person injured in unspecified motor-vehicle accident, traffic, initial encounter; Z23 Encounter for immunization
CPT/HCPCS: 90471; 90715; 99283; J3490

== ENCOUNTER 2018-12-15 14:05 | Emergency (ER) | payer MEDICAID, OTHER ==
[2018-12-15] MEDS ORDERED: ASPIRIN 81 MG TABLET, CHEWABLE PO ONE (14:11)
[2018-12-15] MEDS ORDERED: DIPHENHYDRAMINE HCL 50 MG/ML VIAL IV ONE (14:34)
[2018-12-15] MEDS ORDERED: NORMAL SALINE 1000 ML 1,000 ML IV ONE (14:34)
[2018-12-15] MEDS ORDERED: KETOROLAC TROMETHAMINE INJ/PF 30 MG/1 ML SDV IV ONE (14:34)
[2018-12-15] MEDS ORDERED: PROCHLORPERAZINE EDISYLATE INJ 10 MG/2 ML VIAL IV ONE (14:34)
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
--- NOTE | 2018-12-15 15:06 | EKG REPORT ---
SEVERITY:- OTHERWISE NORMAL ECG - SINUS TACHYCARDIA : Confirmed by: Wilfrido Araiza MD 15-Dec-2018 15:05:14
[2018-12-15 16:18] LABS: ABSOLUTE BASOPHILS # (AUTO) 0.1 10^3/uL (0.0-0.2); ABSOLUTE EOSINOPHILS # (AUTO) 0.3 10^3/uL (0.0-0.6); ABSOLUTE LYMPHOCYTES (AUTO) 1.2 10^3/uL (0.5-4.7); ABSOLUTE MONOCYTES (AUTO) 0.6 10^3/uL (0.1-1.4); ABSOLUTE NEUT (AUTO) 10.4 10^3/uL (1.7-8.2); BASOPHILS % (AUTO) 0.7 % (0-2); EOSINOPHILS % (AUTO) 2.1 % (0-6); HEMATOCRIT 36.7 % (36.0-47.0); LYMPHOCYTES % (AUTO) 9.4 % (13-45); MEAN CORPUSCULAR HEMOGLOBIN 28.8 pg (27.0-33.4); MEAN CORPUSCULAR HGB CONC 32.7 g/dL (32.0-36.0); MEAN CORPUSCULAR VOLUME 88 fl (80-97); MONOCYTES % (AUTO) 4.7 % (3-13); PLATELET COUNT 350 10^3/uL (150-450); RED BLOOD COUNT 4.16 10^6/uL (3.72-5.28); SEGMENTED NEUTROPHILS % (AUTO) 83.1 % (42-78); TOTAL CELLS COUNTED % (AUTO) 100 %; WHITE BLOOD COUNT 12.5 10^3/uL (4.0-10.5)
[2018-12-15 16:36] LABS: ALBUMIN 3.9 g/dL (3.5-5.0); ALKALINE PHOSPHATASE 54 U/L (38-126); ANION GAP 9 (5-19); ASPARTATE AMINO TRANSFERASE 19 U/L (14-36); BILIRUBIN,DIRECT 0.2 mg/dL (0.0-0.4); BILIRUBIN,TOTAL 0.3 mg/dL (0.2-1.3); BLOOD UREA NITROGEN 9 mg/dL (7-20); CALCIUM 8.9 mg/dL (8.4-10.2); CARBON DIOXIDE 23 mmol/L (22-30); CHLORIDE 105 mmol/L (98-107); CREATINE KINASE 154 U/L (30-135); GLUCOSE 91 mg/dL (75-110); TOTAL PROTEIN 6.8 g/dL (6.3-8.2)
[2018-12-15 16:48] LABS: CREATINE KINASE MB 0.79 ng/mL (<4.55)
[2018-12-15 16:50] LABS: TROPONIN I < 0.012 ng/mL
--- NOTE | 2018-12-15 18:22 | RADIOLOGY REPORT (SQ) ---
EXAM DESCRIPTION: U/S OB TRANSVAG W/DOPPLER COMPLETED DATE/TIME: 12/15/2018 6:01 pm REASON FOR STUDY: , near syncope, r/o ectopic COMPARISON: None. TECHNIQUE: Transvaginal static and realtime grayscale images acquired of the pelvis. Additional andrew cted spectral and color Doppler images recorded. All images stored on PACs. CLINICAL AGE: 3 weeks 4 days BHCG: Not available. LIMITATIONS: None. FINDINGS: UTERUS: No visualized intrauterine . RIGHT ADNEXA: Normal ovary with normal vascular flow. No adnexal free fluid. No adnexal masses. LEFT ADNEXA: Normal ovary with normal vascular flow. 1.8 cm cyst. No adnexal free fluid. No adnexal masses. FREE FLUID: Small amount of cul-de-sac free fluid. OTHER: No other significant finding. IMPRESSION: NO VISUALIZED INTRA- OR EXTRAUTERINE . bHCG LEVEL TOO LOW TO EXPECT VISUALIZATION OF . ECTOPIC CANNOT BE EXCLUDED. FOLLOW-UP ULTRASOUND AND SERIAL BHCG LEVELS STRONGLY RECOMMENDED TO ACCURATELY ASSESS STATU S. TECHNICAL DOCUMENTATION: JOB ID: [id number] [place]-72 2010 [employer]- All Rights Reserved Reading location - IP/workstation name: [email or web address]
[2018-12-15 19:09] LABS: APPEARANCE,URINE SLIGHTLY-CLOUDY; BILIRUBIN,URINE NEGATIVE (NEGATIVE); COLOR,URINE YELLOW; GLUCOSE, URINE NEGATIVE (NEGATIVE); KETONES,URINE 20 mg/dL (NEGATIVE); LEUKOCYTE ESTERASE,URINE NEGATIVE (NEGATIVE); NITRITE,URINE NEGATIVE (NEGATIVE); PROTEIN,URINE NEGATIVE (NEGATIVE); URINE SPECIFIC GRAVITY 1.018
[2018-12-15 20:35] VITALS: BP 97/65
== END 2018-12-15 20:40 | disposition home or self-care (01) ==
LOC: ER 14:05
DX: O26.891 Other specified pregnancy related conditions, first trimester (principal); R51 Headache; R61 Generalized hyperhidrosis; R00.0 Tachycardia, unspecified; R11.0 Nausea; R00.2 Palpitations; O99.281 Endocrine, nutritional and metabolic diseases complicating pregnancy, first trimester; E86.0 Dehydration; O99.89 Other specified diseases and conditions complicating pregnancy, childbirth and the puerperium; M54.2 Cervicalgia; M54.9 Dorsalgia, unspecified; V49.9XXA Car occupant (driver) (passenger) injured in unspecified traffic accident, initial encounter; O99.111 Other diseases of the blood and blood-forming organs and certain disorders involving the immune mechanism complicating pregnancy, first trimester; D72.829 Elevated white blood cell count, unspecified; O99.511 Diseases of the respiratory system complicating pregnancy, first trimester; J45.909 Unspecified asthma, uncomplicated; Z3A.01 Less than 8 weeks gestation of pregnancy; Z86.69 Personal history of other diseases of the nervous system and sense organs
CPT/HCPCS: 93005; 99284; 96361; 96374; 96375; 36415; 82553; 82550; 84703; 85025; 80053; 81001; 84484; 76817; 93976; 93010; J1200; J1885; J0780; J7030

== ENCOUNTER 2019-01-11 10:26 | Emergency (ER) | payer MEDICAID ==
[2019-01-11 11:15] LABS: APPEARANCE,URINE CLEAR; BILIRUBIN,URINE NEGATIVE (NEGATIVE); COLOR,URINE YELLOW; GLUCOSE, URINE NEGATIVE (NEGATIVE); KETONES,URINE NEGATIVE (NEGATIVE); LEUKOCYTE ESTERASE,URINE TRACE (NEGATIVE); NITRITE,URINE NEGATIVE (NEGATIVE); PROTEIN,URINE NEGATIVE (NEGATIVE); URINE SPECIFIC GRAVITY 1.014; UROBILINOGEN,URINE NEGATIVE mg/dL (<2.0)
[2019-01-11] MEDS ORDERED: LIDOCAINE 1% INJ (10 MG/ML) 10 ML MDV INJ ONE (11:35)
[2019-01-11] MEDS ORDERED: CEFTRIAXONE INJ 250 MG VIAL IM ONE (11:35)
--- NOTE | 2019-01-11 11:37 | ER Document Report ---
ED Medical Screen (RME) - General Chief Complaint: Vaginal Discharge Stated Complaint: ABDOMINAL PAIN Time Seen by Provider: 01/11/19 11:17 Mode of Arrival: Ambulatory Information source: Patient Notes: Patient presents with concern about STD exposure. Patient reports white vaginal discharge for the past week. Patient denies any urinary symptoms. Patient is status post termination 2 weeks ago. Patient states that she was concerned she may have been exposed to the STD prior to the termination of . Patient denies being sexually active since the termination. Patient denies any fever. I have greeted and performed a rapid initial assessment of this patient. A comprehensive ED assessment and evaluation of the patient, analysis of test results and completion of the medical decision making process will be conducted by additional ED providers. TRAVEL OUTSIDE OF THE [place] IN LAST 30 DAYS: No - Related Data Allergies/Adverse Reactions: No Known Allergies Allergy (Verified 01/11/19 11:09) Past Medical History Pulmonary Medical History: Reports: Hx Asthma Neurological Medical History: Reports: Hx Migraine Renal/ Medical History: Denies: Hx Peritoneal Dialysis - Immunizations Immunizations up to date: Yes Hx Diphtheria, Pertussis, Tetanus Vaccination: Yes History of Influenza Vaccine for 01/2017 - 06/2017 Season: No Physical Exam - Vital signs Vitals: Temp Pulse Resp BP Pulse Ox 98.7 F 90 14 104/72 97 01/11/19 10:33 01/11/19 10:33 01/11/19 10:33 01/11/19 10:33 01/11/19 10:33 - General General appearance: Appears well, Alert In distress: None Course - Vital Signs Vital signs: Temp Pulse Resp BP Pulse Ox 98.7 F 90 14 104/72 97 01/11/19 10:33 01/11/19 10:33 01/11/19 10:33 01/11/19 10:33 01/11/19 10:33 - Laboratory Laboratory results interpreted by me: 01/11/19 11:00 Urine Blood MODERATE H Ur Leukocyte Esterase TRACE H
--- NOTE | 2019-01-11 12:16 | RADIOLOGY REPORT (SQ) ---
EXAM DESCRIPTION: U/S NON OB PEL TV W/DOPPLER COMPLETED DATE/TIME: 01/11/2019 12:04 pm REASON FOR STUDY: vag discharge, hx termination 2 wks ago COMPARISON: None. TECHNIQUE: Dynamic and static grayscale images acquired of the pelvis via transvaginal approach and recorded on PACS. Additional selected color Doppler and spectral images recorded. LIMITATIONS: None. FINDINGS: UTERUS: Contour normal. No mass. ENDOMETRIAL STRIPE: No focal or generalized thickening. No masses. CERVIX: No nabothian cysts. RIGHT OVARY AND DOPPLER: Normal size. No worrisome masses. Normal arterial vascular flow without evid ence for torsion. LEFT OVARY AND DOPPLER: Normal blood flow. Functional cysts. Largest 1.9 cm. FREE FLUID: None noted. OTHER: No other significant finding. MEASUREMENTS: UTERUS: 9.3 cm ENDOMETRIAL STRIPE: 7.2 mm RIGHT OVARY: 2.9 cm LEFT OVARY: 2.4 cm IMPRESSION: Simple ovarian cysts. Otherwise normal study. COMMENT: Followup of asymptomatic benign ovarian cysts detected by ultrasound in PREMENOPAUSAL siria ents Simple cyst: *? 5 cm: no followup *Note: If cyst is clinically symptomatic or otherwise concerning, other followup may be warranted. Based on recommendations of the Society for Radiologists in Ultrasound Consensus Conference Statement 2010 on management of asymptomatic ovarian and other adnexal cysts imaged at ultrasound. TECHNICAL DOCUMENTATION: JOB ID: [id number] [employer]- All Rights Reserved Rev-08/31 Reading location - IP/workstation name: [email or web address]
[2019-01-11 12:32] LABS: BACTERIA (WET MOUNT) 3+ BACTERIA SEEN; EPITHELIALS (WET MOUNT) 3+ EPITHELIALS SEEN; RBCS (WET MOUNT) RARE RBCS SEEN; T.VAGINALIS (WET MOUNT) NO TRICHOMONAS SEEN; WBCS (WET MOUNT) FEW WBCS SEEN; YEAST (WET MOUNT) NO YEAST SEEN
[2019-01-11 12:40] LABS: CHLAM PCR NOT DETECTED (NOT DETECT)
--- NOTE | 2019-01-11 12:49 | ER Document Report ---
ED GI/ - General Chief Complaint: Vaginal Discharge Stated Complaint: ABDOMINAL PAIN Time Seen by Provider: 01/11/19 11:17 Mode of Arrival: Ambulatory Notes: Patient is a 33-year-old female presents to the emergency department with a chief complaint of vaginal discharge. Patient reports she had an elective about 2 weeks ago. Patient reports she did have unprotected sexual intercourse prior to that and she is concerned she may have contracted an STD. Patient reports she is having vaginal discharge that is cloudy and white in color. Patient denies vaginal itching. Patient denies pelvic pain or urinary symptoms. Patient denies abdominal pain or fever. TRAVEL OUTSIDE OF THE [place] IN LAST 30 DAYS: No - Related Data Allergies/Adverse Reactions: No Known Allergies Allergy (Verified 01/11/19 11:09) Past Medical History - General Information source: Patient - Social History Smoking Status: Never Smoker Lives with: Family Family History: Reviewed & Not Pertinent Patient has suicidal ideation: No Patient has homicidal ideation: No - Past Medical History Cardiac Medical History: Reports: None Pulmonary Medical History: Reports: Hx Asthma EENT Medical History: Reports: None Neurological Medical History: Reports: Hx Migraine Endocrine Medical History: Reports: None Renal/ Medical History: Reports: None. Denies: Hx Peritoneal Dialysis Malignancy Medical History: Reports: None GI Medical History: Reports: None Musculoskeletal Medical History: Reports None Skin Medical History: Reports None Psychiatric Medical History: Reports: None Traumatic Medical History: Reports: None Infectious Medical History: Reports: None Surgical Hx: Negative - Immunizations Immunizations up to date: Yes Hx Diphtheria, Pertussis, Tetanus Vaccination: Yes Hx Pneumococcal Vaccination: 09/06/11 Review of Systems - Review of Systems Constitutional: No symptoms reported EENT: No symptoms reported Cardiovascular: No symptoms reported Respiratory: No symptoms reported Gastrointestinal: No symptoms reported Genitourinary: No symptoms reported Female Genitourinary: See HPI Musculoskeletal: No symptoms reported Skin: No symptoms reported Hematologic/Lymphatic: No symptoms reported Neurological/Psychological: No symptoms reported Physical Exam - Vital signs Vitals: Temp Pulse Resp BP Pulse Ox 98.7 F 90 14 104/72 97 01/11/19 10:33 01/11/19 10:33 01/11/19 10:33 01/11/19 10:33 01/11/19 10:33 Interpretation: Normal - Notes Notes: GENERAL: Well-appearing, well-nourished and in no acute distress. HEAD: Atraumatic, normocephalic. EYES: Pupils equal round and reactive to light, extraocular movements intact, sclera anicteric, conjunctiva are normal. ENT: Nares patent, oropharynx clear without exudates. Moist mucous membranes. NECK: Normal range of motion, supple without lymphadenopathy or JVD. LUNGS: Breath sounds clear to auscultation bilaterally and equal. No wheezes rales or rhonchi. HEART: Regular rate and rhythm without murmurs, rubs or gallops. ABDOMEN: Soft, nontender, normoactive bowel sounds. No suprapubic tenderness with palpation. No guarding, no rebound. No masses appreciated. BACK: No cervical, thoracic, lumbar midline tenderness. No saddle anesthesia, normal distal neurovascular exam. GENITOURINARY: Deferred. EXTREMITIES: Normal range of motion, no pitting or edema. No clubbing or cyanosis. NEUROLOGICAL: Cranial nerves II through XII grossly intact. Normal speech, normal gait. PSYCH: Normal mood, normal affect. SKIN: Warm, Dry, normal turgor, no rashes or lesions noted. Course - Re-evaluation Re-evalutation: 01/11/19 12:53 Patient's urinalysis was unremarkable. Patient's self swab did reveal a bacterial vaginosis. Patient's gonorrhea and Chlamydia cultures did result while she was in the emergency department and they are negative. I will hold off on giving the Zithromax. I did inform the patient of this. Also informed her that of the results of the ultrasound which did show simple cysts of the left ovary. There was no other acute abnormality. - Vital Signs Vital signs: Temp Pulse Resp BP Pulse Ox 98.7 F 90 14 104/72 97 01/11/19 10:33 01/11/19 10:33 01/11/19 10:33 01/11/19 10:33 01/11/19 10:33 - Laboratory Laboratory results interpreted by me: 01/11/19 11:00 Urine Blood MODERATE H Ur Leukocyte Esterase TRACE H 01/11/19 12:53 Laboratory 01/11/19 01/11/19 01/11/19 11:00 11:00 12:23 Urine Color YELLOW Urine Appearance CLEAR Urine pH 7.0 Ur Specific [place] 1.014 Urine Protein NEGATIVE Urine Glucose (UA) NEGATIVE Urine Ketones NEGATIVE Urine Blood MODERATE H Urine Nitrite NEGATIVE Urine Bilirubin NEGATIVE Urine Urobilinogen NEGATIVE Ur Leukocyte Esterase TRACE H Urine WBC (Auto) 3 Urine RBC (Auto) 2 Urine Bacteria (Auto) TRACE Squamous Epi Cells Auto 1 Urine Mucus (Auto) RARE Urine Ascorbic Acid NEGATIVE Epi Cells (Wet Prep) 3+ EPITHELIALS SEEN Bacteria (Wet Prep) 3+ BACTERIA SEEN Trichomonas (Wet Prep) NO TRICHOMONAS SEEN Vaginal WBC FEW WBCS SEEN Vaginal RBC RARE RBCS SEEN Vaginal Yeast NO YEAST SEEN Chlamydia DNA (PCR) NOT DETECTED N.gonorrhoeae DNA (PCR) NOT DETECTED - Diagnostic Test Radiology reviewed: Reports reviewed Radiology results interpreted by me: 01/11/19 12:52 Transvaginal US 01/11/19 11:34 IMPRESSION: Simple ovarian cysts. Otherwise normal study. Discharge - Discharge Clinical Impression: Bacterial vaginosis, Vaginal discharge Ovarian cyst Qualifiers: Laterality: left Qualified Code(s): N83.202 - Unspecified ovarian cyst, left side Condition: Stable Disposition: HOME, SELF-CARE Additional Instructions: Today you were seen in the emergency department for vaginal discharge. We did obtain a vaginal ultrasound which did show you had a small simple cyst on the left ovary. These are usually asymptomatic and do not cause much pain. Rest of the ultrasound was unremarkable without any acute abnormality. The gonorrhea and chlamydia cultures did come back negative. Your pelvic specimen did show that you have bacterial vaginosis. This is a condition due to overgrowth of bacteria in the vagina. This could be why you are having increased vaginal discharge. I am prescribing you an oral antibiotic called Flagyl. You do not drink alcohol while on this medication as it can make you violently ill. Please follow[facility]up with [facility] for reevaluation. Please call your doctor if you develop any pelvic pain, fever, problems urination or if her symptoms do not improve. Vaginosis, Bacterial Your exam shows you have bacterial vaginosis. This condition is due to an overgrowth of bacteria in the vagina. Symptoms may include vaginal itching or pain, a smelly discharge, and sometimes burning with urination. Normally this is not transmitted by sexual contact. Vaginosis can be treated with oral or topical antibiotics. Metronidazole (Flagyl) pills are usually effective. Topical vaginal creams include Cleocin and Metro-Gel. You should avoid sexual contact until your symptoms are all better. Call the doctor if you develop pelvic pain, fever, or problems with urination, or if you don't improve as expected. Prescriptions: Metronidazole [Flagyl 500 mg Tablet] 500 mg PO BID 7 Days #14 tablet Forms: Return to Work
[2019-01-11 12:57] VITALS: BP 117/72
== END 2019-01-11 12:59 | disposition home or self-care (01) ==
LOC: ER 10:26
DX: N76.0 Acute vaginitis (principal); B96.89 Other specified bacterial agents as the cause of diseases classified elsewhere; N83.292 Other ovarian cyst, left side; Z20.2 Contact with and (suspected) exposure to infections with a predominantly sexual mode of transmission; J45.909 Unspecified asthma, uncomplicated
CPT/HCPCS: 99284; 96374; 96375; 87210; 81001; 87491; 87591; 76830; 93976; J0696; J3490

== ENCOUNTER 2019-04-08 14:25 | Emergency (ER) | payer MEDICAID ==
[2019-04-08] MEDS ORDERED: CEFTRIAXONE INJ 250 MG VIAL IM ONE (15:16)
[2019-04-08] MEDS ORDERED: LIDOCAINE 1% INJ-PF (10 MG/ML) 30 ML SDV INJ ONE (15:17)
[2019-04-08] MEDS ORDERED: AZITHROMYCIN 250 MG TABLET PO ONE (15:17)
--- NOTE | 2019-04-08 15:18 | ER Document Report ---
HPI - HPI Patient complains to provider of: vaginal discharge Time Seen by Provider: 04/08/19 15:13 Onset: Other Onset/Duration: Sudden Pain Level: 1 Context: 33-year-old female presents emergency department with complaints of vaginal discharge odor little bit of pain with voiding. Reports she had unprotected sex 2 weeks ago. She is concerned she may have some STD. Denies fever vomiting d iarrhea. Reports she is on control pill she takes every morning at 8:00. Last menstrual period was April 01. Associated Symptoms: None Exacerbated by: Denies Relieved by: Denies Similar symptoms previously: No Recently seen / treated by doctor: No - REPRODUCTIVE LMP: 03/2019 Reproductive: DENIES: : Past Medical History - General Information source: Patient Last Menstrual Period: April 01 - Social History Smoking Status: Smoker,Current Status Unk Chew tobacco use (# tins/day): No Frequency of alcohol use: Occasional Drug Abuse: Marijuana Family History: Reviewed & Not Pertinent Patient has suicidal ideation: No Patient has homicidal ideation: No Pulmonary Medical History: Reports: Hx Asthma Neurological Medical History: Reports: Hx Migraine Renal/ Medical History: Denies: Hx Peritoneal Dialysis - Immunizations Immunizations up to date: Yes Hx Diphtheria, Pertussis, Tetanus Vaccination: Yes Hx Pneumococcal Vaccination: 09/06/11 Vertical Provider Document - CONSTITUTIONAL Agree With Documented VS: Yes Exam Limitations: No Limitations General Appearance: WD/WN, No Apparent Distress - INFECTION CONTROL TRAVEL OUTSIDE OF THE [place] IN LAST 30 DAYS: No - HEENT HEENT: Atraumatic, Normocephalic - NECK Neck: Supple - RESPIRATORY Respiratory: Breath Sounds Normal, No Respiratory Distress - CARDIOVASCULAR Cardiovascular: Regular Rate, Regular Rhythm - GI/ABDOMEN Gastrointestinal: Abdomen Soft, Abdomen Non-Tender - REPRODUCTIVE Female Genitalia: Normal Inspection - MUSCULOSKELETAL/EXTREMETIES Musculoskeletal/Extremeties: WENDI SMITH - NEURO Level of Consciousness: Awake, Alert, Appropriate Motor/Sensory: No Motor Deficit - DERM Integumentary: Warm, Dry Course - Re-evaluation Re-evalutation: 04/08/19 20:31 Urine Color YELLOW 04/08/19 15:24 Urine Appearance SLIGHTLY-CLOUDY 04/08/19 15:24 Urine pH 6.0 (5.0-9.0) 04/08/19 15:24 Ur Specific [place] 1.024 04/08/19 15:24 Urine Protein 30 mg/dL (NEGATIVE) H 04/08/19 15:24 Urine Glucose (UA) NEGATIVE mg/dL (NEGATIVE) 04/08/19 15:24 Urine Ketones TRACE mg/dL (NEGATIVE) H 04/08/19 15:24 Urine Blood NEGATIVE (NEGATIVE) 04/08/19 15:24 Urine RBC (Auto) 1 /HPF 04/08/19 15:24 Patient positive for BV. STD cultures negative. Patient was instructed on this instructed on Flagyl. She verbalized understanding to all instructions. - Vital Signs Vital signs: Temp Pulse Resp BP Pulse Ox 98.1 F 95 16 112/70 97 04/08/19 15:01 04/08/19 15:01 04/08/19 15:01 04/08/19 15:01 04/08/19 15:01 Procedures - Pelvic Exam Pelvic exam Cultures obtained: Yes Wet prep obtained: Yes Herpes culture obtained: No POC sent to lab: No Foreign body removed: No Bimanual exam performed: Yes Witnessed by: andres hewittinternational representative - Discharge Clinical Impression: Vaginal discharge, Bacterial vaginosis Condition: Stable Disposition: HOME, SELF-CARE Instructions: Metronidazole ([facility]), [facility], Vaginosis, Bacterial ([facility]) Additional Instructions: *You have been evaluated for vaginal discharge, bacterial vaginosis Your STD cultures were negative *Take medication as prescribed *Follow up with your MECHANICAL INTERN or the health department for recheck within 1 week *Return to ED for worsening condition, changes, needs Prescriptions: Metronidazole [Flagyl 500 mg Tablet] 500 mg PO BID #14 tablet
[2019-04-08 15:50] LABS: APPEARANCE,URINE SLIGHTLY-CLOUDY; BILIRUBIN,URINE NEGATIVE (NEGATIVE); COLOR,URINE YELLOW; GLUCOSE, URINE NEGATIVE (NEGATIVE); KETONES,URINE TRACE mg/dL (NEGATIVE); PROTEIN,URINE 30 mg/dL (NEGATIVE); URINE SPECIFIC GRAVITY 1.024
[2019-04-08 16:53] LABS: T.VAGINALIS (WET MOUNT) NO TRICHOMONAS SEEN; WBCS (WET MOUNT) RARE WBCS SEEN; YEAST (WET MOUNT) NO YEAST SEEN
[2019-04-08 16:55] LABS: BACTERIA (WET MOUNT) 3+ BACTERIA SEEN; EPITHELIALS (WET MOUNT) 3+ EPITHELIALS SEEN
[2019-04-08 17:18] LABS: CHLAM PCR NOT DETECTED (NOT DETECT)
[2019-04-08] MEDS ORDERED: METRONIDAZOLE 500 MG TABLET PO ONE (17:27)
[2019-04-08 17:39] VITALS: BP 118/72
== END 2019-04-08 17:38 | disposition home or self-care (01) ==
LOC: ER 14:25
DX: N76.0 Acute vaginitis (principal); B96.89 Other specified bacterial agents as the cause of diseases classified elsewhere
CPT/HCPCS: 99283; 96372; 96374; 87210; 81025; 81001; 87491; 87591; Q0144; J3490 ×2; J0696

== ENCOUNTER 2020-02-09 17:32 | Emergency (ER) | payer SELFPAY ==
[2020-02-09 18:31] VITALS: BP 136/90
--- NOTE | 2020-02-09 18:37 | ER Document Report ---
HPI - HPI Time Seen by Provider: 02/09/20 18:31 Context: Patient is a 34-year-old female who presents emergency department with a chief complaint of abdominal pain. Patient reports left lower pelvic pain with vaginal discharge. Patient reports she does have a vaginal discharge that has a strong odor and is discolored. Patient did have unprotected sex 1 week ago and is concerned for STI. Patient states she also has a history of a fibroid when she was and is unsure if this is what is causing the discomfort or if she has a sexually transmitted disease. Patient reports that her last menstrual cycle was February 03 and she is still currently on her period although this is very light. Patient does take oral control medications. - REPRODUCTIVE Reproductive: DENIES: : Past Medical History - General Information source: Patient - Social History Smoking Status: Unknown if Ever Smoked Lives with: Family Family History: Reviewed & Not Pertinent - Past Medical History Cardiac Medical History: Reports: None Pulmonary Medical History: Reports: Hx Asthma EENT Medical History: Reports: None Neurological Medical History: Reports: Hx Migraine Endocrine Medical History: Reports: None Renal/ Medical History: Reports: None. Denies: Hx Peritoneal Dialysis Malignancy Medical History: Reports: None GI Medical History: Reports: None Musculoskeletal Medical History: Reports None Skin Medical History: Reports None Psychiatric Medical History: Reports: None Traumatic Medical History: Reports: None Infectious Medical History: Reports: None Surgical Hx: Negative - Immunizations Immunizations up to date: Yes Hx Diphtheria, Pertussis, Tetanus Vaccination: Yes Hx Pneumococcal Vaccination: 09/06/11 Vertical Provider Document - CONSTITUTIONAL Agree With Documented VS: Yes Exam Limitations: No Limitations General Appearance: No Apparent Distress Notes: GENERAL: Well-appearing, well-nourished and in no acute distress. HEAD: Atraumatic, normocephalic. EYES: Pupils equal round and reactive to light, extraocular movements intact, sclera anicteric, conjunctiva are normal. ENT: TMs normal, nares patent, oropharynx clear without exudates. Moist mucous membranes. NECK: Normal range of motion, supple without lymphadenopathy or JVD. LUNGS: Breath sounds clear to auscultation bilaterally and equal. No wheezes rales or rhonchi. HEART: Regular rate and rhythm without murmurs, rubs or gallops. ABDOMEN: Soft, very mild tenderness to left lower quadrant, hyperactive bowel sounds. No guarding, no rebound. No masses appreciated. BACK: No cervical, thoracic, lumbar midline tenderness. No saddle anesthesia, normal distal neurovascular exam. GENITOURINARY: Deferred. EXTREMITIES: Normal range of motion, no pitting or edema. No clubbing or cyanosis. NEUROLOGICAL: Cranial nerves II through XII grossly intact. Normal speech, normal gait. PSYCH: Normal mood, normal affect. SKIN: Warm, Dry, normal turgor, no rashes or lesions noted. - INFECTION CONTROL TRAVEL OUTSIDE OF THE [place] IN LAST 30 DAYS: No Course - Re-evaluation Re-evalutation: 02/09/20 18:40 Patient is nontoxic-appearing. Will order a pelvic as well as an ultrasound. 02/09/20 22:21 Patient aware that she was positive for trichomonas. We will treat her with Flagyl. Patient also be treated for urinary tract infection. Patient was given Rocephin and Zithromax to treat for prophylactic gonorrhea and chlamydia. Patient encouraged to retest in 2 weeks to make sure that the infection is gone. - Vital Signs Vital signs: Temp Pulse Resp BP Pulse Ox 98.1 F 90 20 136/90 H 99 02/09/20 18:02 02/09/20 18:02 02/09/20 18:02 02/09/20 18:02 02/09/20 18:02 - Laboratory Laboratory results interpreted by me: 02/09/20 22:22 Laboratory 02/09/20 02/09/20 19:05 21:50 Urine Color YELLOW Urine Appearance SLIGHTLY-CLOUDY Urine pH 7.0 Ur Specific Chase 1.016 Urine Protein NEGATIVE Urine Glucose (UA) NEGATIVE Urine Ketones TRACE H Urine Blood SMALL H Urine Nitrite NEGATIVE Urine Bilirubin NEGATIVE Urine Urobilinogen 4.0 H Ur Leukocyte Esterase MODERATE H Urine WBC (Auto) 57 Urine RBC (Auto) 5 U Hyaline Cast (Auto) 1 Urine Bacteria (Auto) TRACE Squamous Epi Cells Auto 10 Urine Mucus (Auto) RARE Urine Ascorbic Acid NEGATIVE Urine HCG, Qual NEGATIVE Bacteria (Wet Prep) 3+ BACTERIA SEEN Trichomonas (Wet Prep) TRICHOMONAS SEEN Vaginal WBC NO WBCS SEEN Vaginal Yeast NO YEAST SEEN - Diagnostic Test Radiology reviewed: Reports reviewed Radiology results interpreted by me: 02/09/20 22:22 Transvaginal US 02/09/20 18:36 IMPRESSION: Normal sonographic appearance of the uterus and ovaries. No evidence of torsion. Procedures - Pelvic Exam Pelvic exam Time completed: 22:00 Cultures obtained: Yes Wet prep obtained: Yes Witnessed by: BLOSSOM HERNANDEZ Notes: 02/09/20 22:20 External genitalia did not reveal any edema, lesions or erythema. Patient tolerated the insertion of the speculum and movement well. Cervix was visualized and closed. Patient had copious amounts of clear discharge. Scant amount of blood noted. Discharge - Discharge Clinical Impression: Infection due to trichomonas Urinary tract infection Qualifiers: Urinary tract infection type: acute cystitis Hematuria presence: without hematuria Qualified Code(s): N30.00 - Acute cystitis without hematuria Condition: Stable Disposition: HOME, SELF-CARE Additional Instructions: Today are seen in the emergency department for STI testing. We did treat you for gonorrhea, chlamydia. It was found that you do have trichomonas. You do need to take Flagyl twice daily for the next 7 days. Please make sure that you are we tested in 14 days to make sure that the infection is gone. Please make sure that all partners are tested. You are also being diagnosed with urinary tract infection. I am placing you on oral Keflex. Please take this antibiotic for its full course. Trichomonas Infection Trichomoniasis is infection of the vagina or male genital tract with Trichomonas vaginalis. It can be asymptomatic or cause urethritis, vaginitis, or occasionally cystitis, epididymitis, or prostatitis. Diagnosis is by microscopic examination of vaginal or prostatic secretions or by urethral culture. Patients and sex partners are treated with metronidazole. T. vaginalis is a flagellated, sexually transmitted protozoan that more often infects women (about 20% of women of reproductive age) than men. Infection may be asymptomatic in either sex, but asymptomatic is the rule for men. In men, protozoa may persist for long periods in the tract without causing symptoms; thus, protozoa may be transmitted unwittingly to sex partners. Trichomoniasis may account for up to 5% of nongonococcal, nonchlamydial urethritis in men in some areas. Co-infection with gonorrhea and other sexually transmitted diseases (STDs) is common. In women, symptoms range from none to copious, yellow-green, frothy vaginal discharge with soreness of the vulva and perineum, dyspareunia, and dysuria. Asymptomatic infection may become symptomatic at any time as the vulva and perineum become inflamed and edema develops in the labia. The vaginal hendrickson and surface of the cervix may have punctate, red "strawberry" spots. Urethritis and possibly cystitis may also occur. Men are usually asymptomatic; however, sometimes urethritis results in a discharge that may be transient, frothy, or purulent or that causes dysuria and frequency, usually early in the morning. Often, urethritis is mild and causes only minimal urethral irritation and occasional moisture at the urethral meatus, under the foreskin, or both. Epididymitis and prostatitis are rare complica tions. Trichomoniasis is suspected in women with vaginitis, in men with urethritis, and in their sex partners. Suspicion is high if symptoms persist after patients have been evaluated and treated for other infections such as gonorrhea and chlamydial, mycoplasmal, and ureaplasmal infections. In women, diagnosis is based on clinical criteria and in-office testing. The saline wet mount is examined microscopically as soon as possible to detect trichomonads.In men, microscopy of urine is insensitive, although occasionally organisms are visible in a first-voided morning specimen or a centrifuged specimen. Cultures of urine and urethral swabs are more sensitive. As with diagnosis of any STD, patients with trichomoniasis should be tested to exclude other common STDs such as gonorrhea and chlamydial infection. Metronidazole or tinidazole 2 g po in a single dose cures up to 95% of women if sex partners are treated simultaneously. Effectiveness of single-dose regimens in men is not as clear, so treatment is typically with metronidazole or tinidazole 500 mg bid for 5 to 7 days. Sex partners should be screened and treated for trichomoniasis and other STDs. If poor adherence to follow-up is likely, treatment can be initiated in sex partners of patients with documented trichomoniasis without confirming the diagnosis in the partner. URINARY TRACT INFECTION: Your evaluation indicates that you have a urinary tract infection. This is due to germs growing in the bladder. This is a common problem. This infection usually responds quickly to antibiotics. Your antibiotic should be taken exactly as prescribed. Drink plenty of fluids -- three to four quarts a day. Occasionally, a bladder anesthetic will be prescribed to help stop the feeling of urgency until the antibiotic has a chance to clear the infection. This may cause your urine to be dark orange. Certain urine infections require a culture. If the doctor obtained a culture, the results will be back in two days. You should call to see if a change in treatment is needed. A repeat urinalysis after you finish treatment is often recommended. The physician will let you know if further testing is required. Call the doctor if you develop fever, chills, flank pain, inability to urinate, or blood in the urine. ANTIBIOTIC THERAPY: You have been given an antibiotic prescription. It's important that you take all the medication, unless instructed otherwise by your physician. Failure to complete the entire course can result in relapse of your condition. Common side effects of antibiotics include nausea, intestinal cramping, or diarrhea. Women may develop vaginal yeast infections, and babies can get yeast (thrush) in the mouth following the use of antibiotics. Contact your physician if you develop significant side effects from this medication. Allergy to this antibiotic can result in hives, wheezing, faintness, or itching. If symptoms of allergy occur, stop the medication and call the doctor. CEPHALEXIN: The antibiotic you've been prescribed is a member of the cephalosporin class. This type of antibiotic covers a wide variety of infections, including those of the skin, lungs, and urinary tract. It's useful for staph infections. This antibiotic is slightly similar to the penicillin family. In rare cases, a person who is allergic to penicillin will also be allergic to this medication. If you have had a severe allergic reaction to penicillin, and have not taken this antibiotic since that time, notify your doctor. Antibiotics which cover many germs ("broad spectrum" antibiotics) are more likely to cause diarrhea or "yeast" infections. Women prone to vaginal yeast problems may suffer an attack after taking this antibiotic. In infants, oral thrush (white spots "stuck" on the cheek) or yeast diaper rash may result. See your doctor if these problems occur. Call at once if you develop itching, hives, shortness of breath, or lightheadedness. FOLLOW-UP CARE: If you have been referred to a physician for follow-up care, call the physicians office for an appointment as you were instructed or within the next two days. If you experience worsening or a significant change in your symptoms, notify the physician immediately or return to the Emergency Department at any time for re-evaluation. Prescriptions: Metronidazole [Flagyl 500 mg Tablet] 500 mg PO BID 7 Days #14 tablet Cephalexin Monohydrate [Keflex 500 mg Capsule] 500 mg PO BID 5 Days #10 capsule
[2020-02-09 19:26] LABS: APPEARANCE,URINE SLIGHTLY-CLOUDY; BILIRUBIN,URINE NEGATIVE (NEGATIVE); COLOR,URINE YELLOW; GLUCOSE, URINE NEGATIVE (NEGATIVE); KETONES,URINE TRACE mg/dL (NEGATIVE); LEUKOCYTE ESTERASE,URINE MODERATE (NEGATIVE); NITRITE,URINE NEGATIVE (NEGATIVE); PROTEIN,URINE NEGATIVE (NEGATIVE); URINE SPECIFIC GRAVITY 1.016
--- NOTE | 2020-02-09 19:38 | RADIOLOGY REPORT (SQ) ---
EXAM DESCRIPTION: U/S NON OB PEL TV W/DOPPLER IMAGES COMPLETED DATE/TIME: 02/09/2020 6:10 pm REASON FOR STUDY: Left lower pelvic pain, hx. fibroid. LMP 02/04/2020 COMPARISON: 01/11/2019 TECHNIQUE: Dynamic and static grayscale images acquired of the pelvis via transvaginal approach and recorded on PACS. Additional selected color Doppler and spectral images recorded. LIMITATIONS: None. FINDINGS: UTERUS: Contour normal. No mass. ENDOMETRIAL STRIPE: No focal or generalized thickening. Mildly heterogeneous, consistent with secret ory phase of the menstrual cycle. No masses. CERVIX: No nabothian cysts. RIGHT OVARY AND DOPPLER: Normal size. Normal follicles. No worrisome masses. Normal arterial vascul ar flow without evidence for torsion. LEFT OVARY AND DOPPLER: Normal size. Normal follicles. No worrisome masses. Normal arterial vascula r flow without evidence for torsion. FREE FLUID: None noted. OTHER: No other significant finding. MEASUREMENTS: UTERUS: 8.7 x 4.9 by 5.4 cm ENDOMETRIAL STRIPE: 11 mm RIGHT OVARY: 3.0 x 0.9 x 1.7 cm LEFT OVARY: 3.6 x 2.4 x 3.1 cm IMPRESSION: Normal sonographic appearance of the uterus and ovaries. No evidence of torsion. TECHNICAL DOCUMENTATION: JOB ID: [id number] [employer]- All Rights Reserved Rev-08/31 Reading location - IP/workstation name: [email or web address]
[2020-02-09] MEDS ORDERED: CEFTRIAXONE INJ 250 MG VIAL IM ONE (21:47)
[2020-02-09] MEDS ORDERED: LIDOCAINE 1% INJ-PF (10 MG/ML) 30 ML SDV INJ ONE (21:47)
[2020-02-09] MEDS ORDERED: AZITHROMYCIN 250 MG TABLET PO ONE (21:47)
[2020-02-09 21:57] LABS: T.VAGINALIS (WET MOUNT) TRICHOMONAS SEEN
[2020-02-09 21:58] LABS: BACTERIA (WET MOUNT) 3+ BACTERIA SEEN; WBCS (WET MOUNT) NO WBCS SEEN; YEAST (WET MOUNT) NO YEAST SEEN
[2020-02-09 23:29] LABS: CHLAM PCR NOT DETECTED (NOT DETECT)
== END 2020-02-09 22:24 | disposition home or self-care (01) ==
LOC: ER 17:32
DX: A59.00 Urogenital trichomoniasis, unspecified (principal); N30.00 Acute cystitis without hematuria; R10.9 Unspecified abdominal pain; R10.2 Pelvic and perineal pain; Z79.899 Other long term (current) drug therapy; J45.909 Unspecified asthma, uncomplicated
CPT/HCPCS: 99285; 96372; 87086; 87210; 81025; 81001; 87491; 87591; 76830; 93976; J3490; J0696; 87088